=== PATIENT | female | born 1945 | race Caucasian/White ===

== ENCOUNTER 2019-07-09 14:23 | Inpatient (IN) | payer MEDICARE, OTHER, SELFPAY ==
[2019-07-09 14:43] VITALS: BP 207/75; PULSE 59; RESP 14; TEMP 36.6; O2SAT 96; BMI 38.6
--- NOTE | 2019-07-09 14:56 | XR_ITS ---
WS: [id number] PORTABLE CHEST HISTORY: ams COMPARISON: 01/16/2018 Lungs are clear and well expanded. No pleural effusion or pneumothorax. Cardiac size: Moderately enlarged cardiac silhouette. Mediastinum/Aorta: Ectatic partially calcified aorta. No osseous abnormality seen. XR/XR chest 1V portable [id number] IMPRESSION: 1. Moderate cardiomegaly. No pneumonia. 2. Partially calcified aorta.
--- NOTE | 2019-07-09 14:56 | CT_ITS ---
WS: [id number] CT HEAD NONCONTRAST HISTORY: ams TECHNIQUE: Contiguous axial imaging performed through the brain in 2.5 mm imaging. Bone and soft tiss ue windows. Sagittal and coronal reformats reviewed. All CT scans at [facility] use at ast one of these dose optimization techniques: automated exposure control; mA and/or kV adjustment pe r patient size (includes targeted exams where dose is matched to clinical indication); or iterative r econstruction. DLP: 859.93 mGy.cm COMPARISON: None available. No acute intracranial hemorrhage, midline shift or mass effect. Mild atrophy with more focal atrophy involving the frontal lobes bilaterally. Mild chronic microvascu lar ischemic disease. No inferior displacement of cerebellar tonsils. Ventricles: Normal size with no hydrocephalus. Paranasal sinuses: As visualized are clear. Mastoid air cells: Well pneumatized. Calvarium and scalp: Skull is intact with no soft tissue edema or swelling. Moderate atherosclerosis of the intracranial carotid arteries. CT/CT head wo con* [id number] IMPRESSION: 1. No acute intracranial hemorrhage or edema. 2. Cerebral atrophy, most prominent involving the frontal lobes bilaterally wi th mild chronic microvascular ischemic disease.
--- NOTE | 2019-07-09 14:57 | ECG_ITS ---
Measurements Intervals [place] Rate: 56 P: 48 RI: 242 QRS: -45 QRSD: 156 T: 55 QT: 488 QTc: 475 SINUS BRADYCARDIA WITH FIRST DEGREE AV BLOCK MARKED LEFT AXIS DEVIATION [QRS AXIS < -30] INTRAVENTRICULAR CONDUCTION DELAY [130+ ms QRS DURATION] No previous ECG available for comparison Electronically Signed On 07-09-2019 21:57:07 CDT by Thao Phillips M.D. [email or web address]
[2019-07-09 15:26] LABS: Basophils # 0.1 10^3/uL (0.0-0.1); Basophils % 0.9 %; Eosinophils # 0.1 10^3/uL (0.0-0.8); Eosinophils % 1.2 %; Hemoglobin 13.4 g/dL (11.5-15.3); Lymphocytes # 1.5 10^3/uL (0.8-4.8); Lymphocytes % 23.7 %; Mean Corpuscular HGB Conc 31.9 g/dL (30.0-36.0); Mean Corpuscular Hemoglobin 29.5 pg (28.0-34.0); Mean Corpuscular Volume 92.5 fL (81-99); Mean Platelet Volume 9.5 fL (7.4-10.4); Monocytes # 0.6 10^3/uL (0.2-0.9); Monocytes % 8.9 %; Neutrophils # 4.2 10^3/uL (1.8-7.7); Nucleated Red Blood Cells % 0 %; Platelet Count 349 10^3/cmm (130-400); Red Blood Count 4.54 10^6/uL (4.1-5.3); Red Cell Distribution Width 13.9 % (12.1-15.1); White Blood Count 6.5 10^3/uL (4.0-10.0)
--- NOTE | 2019-07-09 15:27 | ED_ITS ---
HPI - Neuro Symptoms/Deficit General: Chief Complaint: Neuro Symptoms/Deficit Stated Complaint: confused/possible stroke like symptoms Time Seen by Provider: 07/09/19 15:14 Source: patient Mode of arrival: ambulatory Limitations: no limitations History of Present Illness: HPI Narrative: 74-year-old female who states that 3 days ago she started having weakness along difficulty walking. She states that she has had weakness in her right side especially her right leg. States she had mild arm weakness as well. She states anytime she tries to walk she is very ataxic and has a very difficult time walking. She denies any headache and denies any worsening improving factors. She denies any fevers. Denies any pain anywhere. Onset (ago): day(s) Associated symptoms: Deny chest pain, nausea or vomiting Review of Systems Const: Denies: fever(s), chills, body aches or change in appetite Eyes: Denies: blurry vision or eye discomfort ENMT: Denies: throat pain or dental pain Card: Denies: chest pain Resp: Denies: dyspnea GI: Denies: abdominal pain, nausea, vomiting or diarrhea : Denies: dysuria Musc: Denies: neck pain or back pain Skin/Breast: Denies: rash Neuro: Reports: weakness in extremities and difficulty walking Psych: Denies: depression Bertin/Lymph: Denies: easy bruising All/Imm: Denies: urticaria PFSH ED PFSH: Social History Smoking and tobacco status: never smoked NIH stroke score NIHSS: Level Of Consciousness - 1a: 0 Level Of Consciousness Questions - 1b: Both Correct Level Of Consciousness Commands - 1c: Both Correct Best Gaze - 2: Normal Visual Mckeon - 3: No Visual Loss Facial Palsy - 4: Normal Motor Arm Right - 5: Drift Motor Arm Left - 5: No Drift Motor Leg Right - 6: No Drift Motor Leg Left - 6: No Drift Limb Ataxia - 7: Present In One Limb Sensory - 8: Normal Best Language - 9: No Aphasia Dysarthia - 10: Normal Extinction And Inattention - 11: 0 Score: Total Score: 2 Physical Exam Const: COMMON NORMALS: no acute distress, patient oriented x3 and healthy appearing HENMT: COMMON NORMALS: normocephalic and atraumatic HEAD & SCALP: normocephalic and atraumatic Eye: COMMON NORMALS: Equal, round and reactive pupils present and EOMs intact bilaterally PUPIL: Yes Equal, round and reactive pupils present Neck/C-Spine: COMMON NORMALS: full ROM and supple Chest: COMMONS NORMALS: normal inspection of the chest and normal palpation of entire chest wall Resp: COMMON NORMALS: normal respiratory effort, No retractions, No use of accessory muscles and clear to auscultation bilaterally AUSCULTATION: clear to auscultation bilaterally Cardio: COMMON NORMALS: regular rate, regular rhythm and No murmurs present (Cardio) RATE: regular rate RHYTHM: regular rhythm GI: COMMON NORMALS: Normal to inspection, nondistended, normoactive bowel sounds present, Soft to palpation, non-tender and no masses PALPATION: Yes Soft to palpation Extremity: COMMON NORMALS: normal to inspection and full ROM Neuro: COMMON NORMALS: patient oriented x3 and moves all extremities OTHER: slight right sided weakness Psych: COMMON NORMALS: mental status grossly normal, Normal thought process present and cooperative THOUGHT PROCESS: Normal thought process present Skin: COMMON NORMALS: no rashes or lesions noted and no wounds GENERAL SKIN EXAM: no rashes or lesions noted Course Vital Signs: Vital signs: Vital Signs Temperature 97.8 F 07/09/19 14:43 Pulse Rate 57 L 07/09/19 16:09 Respiratory Rate 20 H 07/09/19 16:09 Blood Pressure 170/69 07/09/19 16:09 Pulse Oximetry 94 07/09/19 16:09 MDM - Neuro Symptoms/Deficit MDM Narrative: Medical decision making narrative: 74-year-old female presents with right-sided weakness and a possible CVA. Her symptoms have been for 3 days so she is not a TPA candidate. Patient is also on Coumadin. Patient's symptoms are very mild I spoke to hospitalist and will admit for observation. Patient's lab work here is normal otherwise. Head CT showed no acute findings. Lab Data: Labs: Lab Results 07/09/19 07/09/19 07/09/19 Range/Units 15:15 15:15 15:15 WBC 6.5 (4.0-10.0) 10^3/ uL RBC 4.54 (4.1-5.3) 10^6/u L Hgb 13.4 (11.5-15.3) g/dL Hct 42.0 (37.0-47.0) % MCV 92.5 (81-99) fL MCH 29.5 (28.0-34.0) pg MCHC 31.9 (30.0-36.0) g/dL RDW 13.9 (12.1-15.1) % Plt Count 349 (130-400) 10^3/c mm MPV 9.5 (7.4-10.4) fL Neut % (Auto) 65.0 % Lymph % (Auto) 23.7 % [place] % (Auto) 8.9 % Eos % (Auto) 1.2 % Baso % (Auto) 0.9 % Neut # (Auto) 4.2 (1.8-7.7) 10^3/u L Lymph # (Auto) 1.5 (0.8-4.8) 10^3/u L [place] # (Auto) 0.6 (0.2-0.9) 10^3/u L Eos # (Auto) 0.1 (0.0-0.8) 10^3/u L Baso # (Auto) 0.1 (0.0-0.1) 10^3/u L Nucleated RBC % (a uto) 0 % Nucleated RBCs # 0.0 /100WBC PT 30.90 H (10.5-13.3) SECO NDS INR 2.84 H (0.8-1.2) Sodium 138 (136-145) mmol/L Potassium 4.3 (3.5-5.1) mmol/L Chloride 99 (98-107) mmol/L Carbon Dioxide 28 (22-29) mmol/L Anion Gap 15.3 (5-19) BUN 10 (8-23) mg/dL Creatinine 0.9 (0.5-0.9) mg/dL Glucose 252 H (65-115) mg/dL Calculated Osmolal ity 291 (285-295) mOsm/k g Calcium 9.4 (8.5-10.5) mg/dL Total Bilirubin 0.3 (0.15-1.2) mg/dL AST 15 (0-32) U/L ALT 11 (0-33) U/L Alkaline Phosphata se 75 (35-105) IU/L Total Protein 7.0 (6.6-8.7) g/dL Albumin 4.4 (3.5-5.2) g/dL Globulin 2.6 (1.3-4.6) g/dL Ethyl Alcohol < 10 (0-10) mg/dL Imaging Data^: CT Head: Attestation: I personally reviewed and interpreted this imaging study as follows: Radiologist's impression: [place] [address] CT Scan Report Signed Patient: Fallon Miller Unit #: [id number] : 1945 Age/Sex: 74 / F ADM Date: 07/09/19 Loc: ER Room/Bed: Attending Dr: Ordering Provider/Ordering MD: Janna Haji MD Date of Service: 07/09/19 Procedure(s): CT head wo con* [id number] Accession Number(s): [id number] Report Number: [id number] WS: [id number] CT HEAD NONCONTRAST HISTORY: ams TECHNIQUE: Contiguous axial imaging performed through the brain in 2.5 mm imaging. Bone and soft tissue windows. Sagittal and coronal reformats reviewed. All CT scans at [facility] use at least one of these dose optimization techniques: automated exposure control; mA and/or kV adjustment per patient size (includes targeted exams where dose is matched to clinical indication); or iterative reconstruction. DLP: 859.93 mGy.cm COMPARISON: None available. No acute intracranial hemorrhage, midline shift or mass effect. Mild atrophy with more focal atrophy involving the frontal lobes bilaterally. Mild chronic microvascular ischemic disease. No inferior displacement of cerebellar tonsils. Ventricles: Normal size with no hydrocephalus. Paranasal sinuses: As visualized are clear. Mastoid air cells: Well pneumatized. Calvarium and scalp: Skull is intact with no soft tissue edema or swelling. Moderate atherosclerosis of the intracranial carotid arteries. CT/CT head wo con* [id number] IMPRESSION: 1. No acute intracranial hemorrhage or edema. 2. Cerebral atrophy, most prominent involving the frontal lobes bilaterally with mild chronic microvascular ischemic disease. CXR: Attestation: I personally reviewed and interpreted this imaging study as follows: Radiologist's impression: [address] [address] XRay Report Signed Patient: Fallon Miller Unit #: [id number] : 1945 Age/Sex: 74 / F ADM Date: 07/09/19 Loc: ER Room/Bed: Attending Dr: Ordering Provider/Ordering MD: Janna Haji MD Date of Service: 07/09/19 Procedure(s): XR chest 1V portable [id number] Accession Number(s): [id number] Report Number: [id number] WS: [id number] PORTABLE CHEST HISTORY: ams COMPARISON: 01/16/2018 Lungs are clear and well expanded. No pleural effusion or pneumothorax. Cardiac size: Moderately enlarged cardiac silhouette. Mediastinum/Aorta: Ectatic partially calcified aorta. No osseous abnormality seen. XR/XR chest 1V portable [id number] IMPRESSION: 1. Moderate cardiomegaly. No pneumonia. 2. Partially calcified aorta. EKG Data^: EKG 1: Attestation: I personally reviewed and interpreted this EKG as follows: EKG interpretation date: 07/09/19 EKG interpretation time: 14:52 Interpretation: sinus bubba hr [address] or t wave abnormalities qrs 156 qtc 481 Discharge Plan Discharge Patient Disposition: Admitted As Inpatient Clinical Impression: Cerebrovascular accident Qualifiers: CVA mechanism: unspecified Qualified Code(s): I63.9 - Cerebral infarction, unspecified Condition: Stable Referrals: Kvng Lal DO [Primary Care Provider] - Coding Level of Care Code ED County Program Technician for Chg Fwd Exam Comprehensive
[2019-07-09 15:36] LABS: INR 2.84 (0.8-1.2)
[2019-07-09 15:46] LABS: Alanine Aminotransferase 11 U/L (0-33); Albumin Level 4.4 g/dL (3.5-5.2); Alkaline Phosphatase 75 IU/L (35-105); Anion Gap 15.3 (5-19); Aspartate Amino Transferase 15 U/L (0-32); Blood Urea Nitrogen 10 mg/dL (8-23); Calcium 9.4 mg/dL (8.5-10.5); Carbon Dioxide 28 mmol/L (22-29); Chloride 99 mmol/L (98-107); Globulin 2.6 g/dL (1.3-4.6); Glucose 252 mg/dL (65-115); Osmolality Calculated 291 mOsm/kg (285-295); Potassium 4.3 mmol/L (3.5-5.1); Sodium 138 mmol/L (136-145); Total Bilirubin 0.3 mg/dL (0.15-1.2)
[2019-07-09 15:55] LABS: Alcohol Level < 10 mg/dL (0-10)
[2019-07-09 16:09] VITALS: BP 170/69; PULSE 57; RESP 20; O2SAT 94
[2019-07-09] MEDS: sodium chloride 0.9% 1,000 ML 999 ML IV (16:09)
[2019-07-09 16:25] LABS: Add Urine Microscopic? NO
[2019-07-09 16:36] LABS: Urine Appearance Clear (CLEAR); Urine Color Yellow (Yellow); pH Urine 6 (5-7)
[2019-07-09 16:37] LABS: Bilirubin Urine Neg (NEGATIVE); Blood Urine Neg (Negative); Glucose Urine UA Norm (Normal); Ketones Urine Negative (Negative); Leukocyte Esterase Urine Negative (Negative); Nitrate Urine Negative (Negative); Protein Urine Neg (Negative); Urobilinogen Urine Norm (Negative)
[2019-07-09 16:54] VITALS: BP 168/74; PULSE 54; RESP 24; O2SAT 96
--- NOTE | 2019-07-09 17:51 | PM.HP ---
Providers/Chief Complaint Admitting Physician: Jf Montana MD Primary Care Provider: Kvng Lal DO Chief Complaint: confused/possible stroke like symptoms History of Present Illness Fallon Miller is a 74 year old female with a past medical history of insulin-dependent type 2 diabetes mellitus, atrial fibrillation on Coumadin and an antiarrhythmic, anxiety, hypertension, hyperlipidemia, hypothyroidism, who presents [facility] due to complaints of numbness. 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 Monday morning she started to notice that her right lip upper and lower, right tongue, right inner mouth felt numb, she thought not much of her symptoms. Throughout the day the numbness spread to the right side of her face, again she did not think much of her symptoms. Over the next 48 hours, numbness spread to the right arm, right chest, right leg, right gluteus, right groin, right sole of her feet, she has had trouble coordinating, she felt unsteady on her feet, she had a clumsy hand, things would frequently fall out of her hand, no facial droop, no visual changes, no inherent weakness of upper or lower extremities, no slurring of her speech. Patient states that she might of had a transient ischemic attack maybe 2 years ago, when she went went to use the bathroom, and she passed out, and needed help up out of the bathroom, EMS was called, but patient refused to come to the hospital. 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 Patient does report that on Monday she took an extra dose of her 5 mg of Coumadin as she was worried about her symptoms. Denies chest pain, palpitations, lightheadedness, dizziness, nausea, vomiting, bloody or black stools, hematemesis, hemoptysis. Currently patient states that she lives alone, but she does have sons are close by, her unfortunately fell off the roof roughly 2 months ago, he has been hospitalized for the last month, has undergone multiple surgeries, and there are plans on him returning back home. Review of Systems Const: Denies: fever(s), chills, fatigue or malaise Eyes: Denies: change in vision or blurry vision ENMT: Denies: nasal congestion Card: Denies: chest pain, palpitations, irregular heart rhythm, lightheadedness, syncope or orthopnea Resp: Denies: dyspnea, productive cough, non-productive cough or wheezing GI: Denies: abdominal pain, nausea, vomiting, hematemesis, diarrhea, constipation, hematochezia or melena : Denies: flank pain, dysuria or urinary frequency Musc: Denies: neck pain or back pain Skin/Breast: Denies: rash Neuro: Reports: numbness in extremities, sensory changes, lack of coordination, difficulty walking and dizziness; Denies: headache(s), vertigo, behavioral changes or Slurred speech present Psych: Denies: anxiety or depression Endo: Denies: polyuria or polydipsia Medications/Allergies Home Medications Medication Instructions Recorded Confirmed Last Taken Type amlodipine 5 mg tablet 5 mg PO DAILY #90 tab 06/10/19 07/09/19 07/09/19 Rx losartan 100 mg tablet 100 mg PO DAILY #90 tab 06/10/19 07/09/19 07/09/19 Rx nitroglycerin 0.4 mg sublingual 0.4 mg SUBLINGUAL Q5M PRN #90 tab 06/10/19 07/09/19 Unknown Rx tablet warfarin 5 mg tablet 5 mg PO DAILY #90 tab 06/10/19 07/09/19 07/08/19 Rx cholecalciferol (vitamin D3) 25 mcg PO DAILY 07/09/19 07/09/19 07/09/19 History [Vitamin D3] diazepam 5 mg PO TID PRN 07/09/19 07/09/19 Unknown History famotidine 40 mg PO DAILY 07/09/19 07/09/19 Unknown History flecainide 100 mg PO BID 07/09/19 07/09/19 07/09/19 History insulin asp prt-insulin aspart See Rx Instructions .ROUTE .COMPLEX 07/09/19 07/09/19 07/09/19 History [Novolog Mix 70-30 U-100 Insuln] levothyroxine 150 mcg PO DAILY 07/09/19 07/09/19 07/09/19 History metoprolol tartrate See Rx Instructions .ROUTE .COMPLEX 07/09/19 07/09/19 07/09/19 History nitroglycerin [Nitro-Time] 9 mg PO BID 07/09/19 07/09/19 07/09/19 History torsemide 20 mg PO DAILY 07/09/19 07/09/19 Unknown History tramadol See Rx Instructions .ROUTE .COMPLEX 07/09/19 07/09/19 Unknown History warfarin See Rx Instructions .ROUTE .COMPLEX 07/09/19 07/09/19 07/08/19 History Allergies Allergy/AdvReac Type Severity Reaction Status Date / Time Penicillins Allergy ALGY-Rash Verified 07/09/19 14:41 Sulfa (Sulfonamide Allergy ALGY-Rash Verified 07/09/19 14:41 Antibiotics) PFSH Acute PFSH: Medical History (Updated 07/09/19 @ 17:56 by Jf Montana MD) Atrial fibrillation History of deep vein thrombosis Hyperlipidemia Hypertension Hypothyroidism Insulin dependent type 2 diabetes mellitus Muscular dystrophy Surgical History (Updated 07/09/19 @ 17:57 by Jf Montana MD) History of appendectomy Family History (Updated 07/09/19 @ 17:57 by Jf Montana MD) Father Stroke Social History Smoking and tobacco status: never smoked Vitals/I&O/Wt Last Vital Signs Temp 97.8 F 07/09/19 14:43 Pulse 54 L 07/09/19 16:54 Resp 24 H 07/09/19 16:54 BP 168/74 07/09/19 16:54 Pulse Ox 96 07/09/19 16:54 Weight last 48 hrs Weight 102.058 kg Physical Exam Const: COMMON NORMALS: no acute distress and patient oriented x3 GENERAL APPEARANCE: cooperative and comfortable HENMT: COMMON NORMALS: normocephalic HEAD & SCALP: normocephalic Eye: COMMON NORMALS: Equal, round and reactive pupils present, EOMs intact bilaterally and no papilledema GENERAL EYE: appearance normal, both eyes and all related structures PUPIL: Yes Equal, round and reactive pupils present DIRECT OPHTHALMOSCOPY: Yes no papilledema Neck/C-Spine: COMMON NORMALS: full ROM, no lymphadenopathy, no JVD and Thyroid normal THYROID: Thyroid normal Lymph: LYMPHATIC: no lymphadenopathy noted Resp: COMMON NORMALS: normal respiratory effort, No retractions, No use of accessory muscles and clear to auscultation bilaterally AUSCULTATION: clear to auscultation bilaterally Cardio: COMMON NORMALS: no JVD, regular rate, regular rhythm, S1 normal heart sound present, S2 normal heart sound present, No gallops present (Cardio), No clicks present (Cardio) and No murmurs present (Cardio) RATE: regular rate RHYTHM: regular rhythm HEART SOUNDS: S1 normal heart sound present and S2 normal heart sound present GI: COMMON NORMALS: Normal to inspection, nondistended, normoactive bowel sounds present, Soft to palpation, non-tender and No hepatosplenomegaly present PALPATION: Yes Soft to palpation and Yes No hepatosplenomegaly present Extremity: COMMON NORMALS: normal to inspection, full ROM and no pedal edema Neuro: COMMON NORMALS: patient oriented x3, CN's II-XII intact bilaterally, moves all extremities and no focal motor deficits SENSORIUM/ORIENTATION: Yes alert, Yes oriented to person, Yes oriented to place and Yes oriented to time SPEECH: speech normal GAIT: Yes Other gait observations present (Unsteady on her feet) SENSORY EXAM: Yes extremities (Right upper extremity numb, right lower extremity numb, right sole of her feet numb) and Trunk sensory exam abnormal (Right trunk is numb, right glued numb, right inner groin numb, right sole of her feet numb, right face numb right tongue numb, right inner part of her mouth numb) MOTOR EXAM: 5/5 motor strength present throughout COORDINATION: vvttos-[id number] test normal (Qiwezj-fr-lyac abnormal) and kbnh-ma-rfee test normal (Abnormal on the right) PUPIL EXAM: Normal pupillary reactivity/response: bilateral Psych: COMMON NORMALS: mental status grossly normal, Normal thought process present and cooperative THOUGHT PROCESS: Normal thought process present Data : 07/09/19 15:15 07/09/19 15:15 A&P Assessment and plan (1) Thalamic stroke: -Given patient's sensory deficits on the right, difficulty coordinating, sounds a lot like a thalamic stroke -Differential includes embolic versus hypertensive Plan: -Admit to general medical floors -Bedside swallow evaluation -Neurochecks -A1c, TSH, lipid panel, mag, phos -PT OT -Telemetry monitoring -Monitor blood pressures -Pharmacy to dose Coumadin, INR 2.8 -Aspirin 81 mg, atorvastatin 80 mg -We will perform a cardiac echocardiogram -We will order MRI of the brain, MRA MRV to evaluate posterior circulation -I spoke to Dr. Urrutia, who agrees with above plan Status: Acute (2) Atrial fibrillation: -Continue flecainide -INR 2.89 -Continue Coumadin pharmacy to dose, 5 mg daily Status: Acute (3) History of deep vein thrombosis: History of DVTs bilateral extremities in the past Status: Acute (4) Muscular dystrophy: Patient has been told that she has a mild form of muscular dystrophy Status: Acute (5) Insulin dependent type 2 diabetes mellitus: -Continue 70/30 40 units in the morning, 20 units at bedtime -Check hemoglobin A1c Status: Acute (6) Hypothyroidism: Continue levothyroxine Status: Acute (7) Hyperlipidemia: Status: Acute (8) Hypertension: Status: Acute Attestations Medical Necessity Statement*: Patient requires hospitalization, outpatient with observation, for thalamic stroke Coding Level of Care Code Acute Chemical Research Worker for [facility] Diagnoses Thalamic stroke I63.9 Atrial fibrillation I48.91 History of deep vein thrombosis Z86.718 Muscular dystrophy G71.00 Insulin dependent type 2 diabetes mellitus E11.9; Z79.4 Hypothyroidism E03.9 Hyperlipidemia E78.5 Hypertension I10
[2019-07-09 18:11] VITALS: BP 116/75; PULSE 57; RESP 18; TEMP 36.9; O2SAT 94
[2019-07-09] MEDS: sodium chloride 0.9% 1,000 ML 75 ML IV (18:28)
[2019-07-09] MEDS: aspirin 81 mg EC Tablet PO (18:28)
[2019-07-09 19:11] LABS: Estmated Average Glucose 192; Hemoglobin A1C 8.3 % (4.0-6.0)
[2019-07-09 19:22] LABS: Chol HDL Ratio 6.63 mg/dL (0.0-4.40); Cholesterol 252 mg/dL (0-200); HDL Cholesterol 38 mg/dL (60-100); LDL Cholesterol Calculated 178 mg/dL (50-129); LDL HDL Ratio 4.68 RATIO (0.00-3.22); Thyroid Stimulating Hormone 1.39 uIU/mL (0.27-4.20); Triglycerides 181 mg/dL (0-150)
[2019-07-09 20:00] VITALS: BP 170/71; PULSE 54; RESP 20; TEMP 36.7; O2SAT 99
[2019-07-09 20:21] VITALS: PULSE 81; RESP 18; O2SAT 94
[2019-07-09 20:40] LABS: Glucose Point of Care 164 mg/dL (70-110)
[2019-07-09] MEDS: metoprolol tartrate 25 mg Tablet PO (21:34)
[2019-07-09] MEDS: atorvastatin 40 mg Tablet 80 MG PO (21:34)
[2019-07-09] MEDS: insulin aspart 70/30 100 units/1 mL 40 UNIT SUBCUT (21:35)
[2019-07-10] VITALS (8 sets, daily range): BP systolic 136–170; BP diastolic 59–79; PULSE 55–98; RESP 16–20; TEMP 36.4–36.6; O2SAT 93–97
[2019-07-10 05:31] LABS: Basophils % 0.8 %; Eosinophils # 0.2 10^3/uL (0.0-0.8); Eosinophils % 3.1 %; Hemoglobin 12.1 g/dL (11.5-15.3); Lymphocytes # 1.7 10^3/uL (0.8-4.8); Lymphocytes % 32.7 %; Mean Corpuscular Hemoglobin 28.8 pg (28.0-34.0); Mean Corpuscular Volume 92.9 fL (81-99); Mean Platelet Volume 9.4 fL (7.4-10.4); Monocytes # 0.7 10^3/uL (0.2-0.9); Monocytes % 13.8 %; Neutrophils # 2.5 10^3/uL (1.8-7.7); Neutrophils % 49.2 %; Nucleated Red Blood Cells % 0 %; Platelet Count 303 10^3/cmm (130-400); Red Cell Distribution Width 13.8 % (12.1-15.1); White Blood Count 5.1 10^3/uL (4.0-10.0)
[2019-07-10 05:40] LABS: INR 3.27 (0.8-1.2)
[2019-07-10 05:45] LABS: Alanine Aminotransferase 8 U/L (0-33); Albumin Level 3.7 g/dL (3.5-5.2); Alkaline Phosphatase 64 IU/L (35-105); Anion Gap 12.9 (5-19); Aspartate Amino Transferase 13 U/L (0-32); Blood Urea Nitrogen 11 mg/dL (8-23); Calcium 8.6 mg/dL (8.5-10.5); Carbon Dioxide 28 mmol/L (22-29); Chloride 105 mmol/L (98-107); Globulin 2.5 g/dL (1.3-4.6); Glucose 138 mg/dL (65-115); Magnesium 1.8 mg/dL (1.7-2.3); Osmolality Calculated 292 mOsm/kg (285-295); Phosphorus 3.1 mg/dL (2.5-4.5); Potassium 3.9 mmol/L (3.5-5.1); Sodium 142 mmol/L (136-145); Total Bilirubin 0.3 mg/dL (0.15-1.2); Total Protein 6.2 g/dL (6.6-8.7)
[2019-07-10 06:51] LABS: Glucose Point of Care 111 mg/dL (70-110)
--- NOTE | 2019-07-10 07:00 | USCV_ITS ---
Fallon Miller Age: 74 Gender: F : 1945 Exam Date: 07/10/2019 06:12 Ordering Phys: Jf Montana MD Technologist: Yamil Frost [place] [facility] [place]: stroke BP: 157 / 70 HR: 56 Rhythm: Sinus Technical Quality: Adequate MEASUREMENTS (Male / Female) Normal Values 2D ECHO LV Diastolic Diameter PLAX 4.9 cm 4.2 - 5.9 / 3.9 - 5.3 cm LV Systolic Diameter PLAX 3.4 cm IVS Diastolic Thickness 1.1 cm 0.6 - 1.0 / 0.6 - 0.9 cm IVS Systolic Thickness 1.6 cm LVPW Diastolic Thickness 1.1 cm 0.6 - 1.0 / 0.6 - 0.9 cm LVPW Systolic Thickness 1.4 cm LVOT Diameter 2.0 cm LV Ejection Fraction 2D Teich 57.9 % LV Ejection Fraction MOD 2C 57.6 % LV Ejection Fraction 2C AL 57.0 % LA Diameter 4.3 cm LA Width 5.0 cm LA Height 5.9 cm RA Width 5.0 cm RA Height 5.0 cm Aorta at Sinotubular Diameter 2.8 cm M-MODE LV Diastolic Diameter MM 5.3 cm 4.2 - 5.9 / 3.9 - 5.3 cm LV Systolic Diameter MM 3.0 cm LV Ejection Fraction MM Teich 72.7 % IVS Diastolic Thickness MM 2.0 cm 0.6 - 1.0 / 0.6 - 0.9 cm IVS Systolic Thickness MM 1.7 cm LVPW Diastolic Thickness MM 5.6 cm 0.6 - 1.0 / 0.6 - 0.9 cm LVPW Systolic Thickness MM 1.8 cm RV Diastolic Diameter MM 1.7 cm Aortic Annulus Diameter 3.7 cm LA Ao Ratio MM 1.1 MV E Point Septal Separation 0.7 cm DOPPLER AV Peak Velocity 127.0 cm/s LVOT Peak Velocity 91.0 cm/s AV Area Cont Eq vti 2.2 cm squared AV Area Cont Eq pk 2.4 cm squared MV Area PHT 5.0 cm squared Mitral E to A Ratio 1.6 MV E' Velocity 8.0 cm/s Mitral E to MV E' Ratio 12.9 Mitral E to LV E' Lateral Ratio 13.4 Mitral E to LV E' Septal Ratio 12.4 TR Peak Velocity 293.0 cm/s TR Peak Gradient 34.4 mmHg TV Peak E Velocity 93.0 cm/s Right Atrial Pressure 3.0 mmHg Pulmonary Artery Systolic Pressu 37.3 mmHg FINDINGS Left Ventricle Normal left ventricular size, systolic function and wall thickness, with no regional wall motion abnormalities. Grade I/IV diastolic dysfunction (abnormal relaxation filling pattern), normal to mildly elevated filling pressures. Left ventricular ejection fraction is estimated at 60 %. Right Ventricle Normal right ventricular size and systolic function. Mild pulmonary hypertension, RVSP 37.3 mmHg. Right Atrium Mildly increased right atrial size. Left Atrium Mildly increased left atrial size. Mitral Valve Structurally normal mitral valve without significant stenosis or prolapse. There is no mitral regurgitation. Aortic Valve Mild aortic valve calcification. Aortic valve sclerosis without stenosis or regurgitation. Tricuspid Valve Structurally normal tricuspid valve. Trace to mild tricuspid valve regurgitation. Pulmonic Valve Pulmonic valve not well visualized. Pericardium Normal pericardium without effusion. Aorta Normal ascending aorta dimension. CONCLUSIONS Normal left ventricular size, systolic function and wall thickness, with no regional wall motion abnormalities. Grade I/IV diastolic dysfunction (abnormal relaxation filling pattern), normal to mildly elevated filling pressures. Left ventricular ejection fraction is estimated at 60 %. Normal right ventricular size and systolic function. Mild pulmonary hypertension, RVSP 37.3 mmHg. Mildly increased right atrial size. Mildly increased left atrial size. No change from the previous echo dated 12/02/2014 Dr. Gabriel Sommers MD (Electronically Signed) Final Date: 10 Jul 2019 09:04 S
[2019-07-10] MEDS: acetaminophen 325 mg Tablet 650 MG PO (08:48)
[2019-07-10] MEDS: losartan 50 mg Tablet 100 MG PO (08:49)
[2019-07-10] MEDS: TORSEmide 20 mg Tablet PO (08:49)
[2019-07-10] MEDS: levothyroxine 150 mcg Tablet PO (08:50)
[2019-07-10] MEDS: metoprolol tartrate 50 mg Tablet PO (08:50)
[2019-07-10] MEDS: amlodipine 5 mg Tablet PO ×2 (08:50→17:10)
[2019-07-10] MEDS: famotidine 20 mg Tablet 40 MG PO (08:52)
--- NOTE | 2019-07-10 10:26 | PC.CHAP ---
Pastoral Care Encounter/Spiritual Assessment Type of Contact [] Declined production worker visit [] Patient/Family/Request visit [] Outpatient visit [] Follow-up visit [] Physician referral [] Code/Alert [x] Routine visit [] Staff referral [] Actively dying [] Patient sleeping [] Family support [] [] Out of room [] Palliative care [] [] Receiving care in room [] Pre-surgical visit [] Trauma [] Long length of stay [] ICU visit [] Other: Relational/Emotional Strength [] Patient feels connected with others/family/visitors/staff [] Distress [] Loneliness/isolation [] Abandonment Spirituality of Patient [x] Person of Marleny [x] Attends Restorationist of their Marleny [x] Believes in Prayer [] Reads Bible or Shinto materials [] There are Spiritual issues to be addressed Human Resource Statistician Interventions [x] Prayer [] Active listening [] Non-anxious presence [] Spiritual/emotional support [] Crisis/trauma care [] Spiritual counseling [] Bereavement support [] Provided bereavement packet [] Provided Bible/devotional materials [] Provided toy/stuffed animal, coloring book to patient or family member [] Provided Communion [] Anointing/Dexter [] Salvation [x] Completed spiritual assessment [] Other: Impact on Illness or Injury [] Angry [] Fearful [] Anxious [] Often cries [] Exhaustion [] Unable to work [] Unable to attend anabaptism [] Unable to walk/stand [] Unable to read [] Unable to drive [] Unable to eat/drink [] Unable to sleep [] Unable to be with family [] Patient intubated [] Other: Summary Patient in great frame of mind. Understands she has tests today, but looking forward to getting home. Time spent with patient 15min
[2019-07-10] MEDS: sodium chloride 0.9% 1,000 ML 75 ML IV (10:55)
[2019-07-10] MEDS: aspirin 81 mg EC Tablet PO (10:58)
[2019-07-10 11:50] LABS: Glucose Point of Care 242 mg/dL (70-110)
[2019-07-10] MEDS: flecainide 100 mg Tablet PO ×2 (12:02→17:10)
--- NOTE | 2019-07-10 12:56 | PM.PN ---
Subjective Subjective: Interval history: This morning patient was able to ambulate with physical therapy, hopefully she will go home with home health care, is awaiting her MRI this morning, states that the numbness on the right side has improved to some degree, but persist, no new focal neurologic deficits Vitals/I&O/Wt Last Vital Signs Temp 97.9 F 07/10/19 11:29 Pulse 98 07/10/19 11:29 Resp 20 H 07/10/19 11:29 BP 170/65 07/10/19 11:29 Pulse Ox 94 07/10/19 11:29 07/09/19 07/10/19 07/10/19 22:59 06:59 14:59 Intake Total 1480 / 1480 Balance 1480 / 1480 Weight last 48 hrs Weight 102.058 kg Physical Exam Const: COMMON NORMALS: no acute distress, patient oriented x3 and alert GENERAL APPEARANCE: cooperative and comfortable ORIENTATION/CONSCIOUSNESS: Yes oriented to person, Yes oriented to place and Yes oriented to time HENMT: COMMON NORMALS: normocephalic HEAD & SCALP: normocephalic Neck/C-Spine: COMMON NORMALS: full ROM, no lymphadenopathy, no JVD and Thyroid normal THYROID: Thyroid normal Lymph: LYMPHATIC: no lymphadenopathy noted Resp: COMMON NORMALS: normal respiratory effort, No retractions, No use of accessory muscles and clear to auscultation bilaterally AUSCULTATION: clear to auscultation bilaterally Cardio: COMMON NORMALS: no JVD, regular rate, regular rhythm, S1 normal heart sound present, S2 normal heart sound present, No gallops present (Cardio), No clicks present (Cardio) and No murmurs present (Cardio) RATE: regular rate RHYTHM: regular rhythm HEART SOUNDS: S1 normal heart sound present and S2 normal heart sound present GI: COMMON NORMALS: Normal to inspection, nondistended, normoactive bowel sounds present, Soft to palpation, non-tender and No hepatosplenomegaly present PALPATION: Yes Soft to palpation and Yes No hepatosplenomegaly present Extremity: COMMON NORMALS: normal to inspection, full ROM and no pedal edema Neuro: COMMON NORMALS: patient oriented x3, CN's II-XII intact bilaterally, moves all extremities and no focal motor deficits SENSORIUM/ORIENTATION: Yes alert, Yes oriented to person, Yes oriented to place and Yes oriented to time COORDINATION/BALANCE: wnmsnm-dv-ejrt test normal (Dmkvtn-zf-ntcg abnormal) and vlep-pd-irsq test normal (Abnormal on the right) SPEECH: speech normal GAIT: Yes Other gait observations present (Unsteady on her feet) SENSORY EXAM: Yes extremities (Right upper extremity numb, right lower extremity numb, right sole of her feet numb) and Trunk sensory exam abnormal (Right trunk is numb, right glued numb, right inner groin numb, right sole of her feet numb, right face numb right tongue numb, right inner part of her mouth numb) MOTOR EXAM: 5/5 motor strength present throughout COORDINATION: ofuxnc-mj-cgru test normal (Qfjbvv-gd-gtjq abnormal) and uqry-vn-nyzh test normal (Abnormal on the right) PUPIL EXAM: Normal pupillary reactivity/response: bilateral Data : 07/10/19 05:16 07/10/19 05:16 A&P Assessment and plan (1) Thalamic stroke: -Given patient's sensory deficits on the right, difficulty coordinating, sounds a lot like a thalamic stroke -Differential includes embolic versus hypertensive Plan: -Admit to general medical floors -Neurochecks -A1c 8.3, TSH 1.39, lipid panel abnormal, -PT OT -Telemetry monitoring -Monitor blood pressures -Pharmacy to dose Coumadin, INR 3.27 -Aspirin 81 mg, atorvastatin 80 mg -Echocardiogram shows ejection fraction of 60%, grade 1 out of 4 diastolic dysfunction, mild palmar hypertension -We will order MRI of the brain, MRA MRV to evaluate posterior circulation -I spoke to Dr. Urrutia, who agrees with above plan Status: Acute (2) Atrial fibrillation: -Continue flecainide -INR 2.89 -Continue Coumadin pharmacy to dose, 5 mg daily Status: Acute (3) History of deep vein thrombosis: History of DVTs bilateral extremities in the past Status: Acute (4) Muscular dystrophy: Patient has been told that she has a mild form of muscular dystrophy Status: Acute (5) Insulin dependent type 2 diabetes mellitus: -Continue 70/30 40 units in the morning, 20 units at bedtime Status: Acute (6) Hypothyroidism: Continue levothyroxine Status: Acute (7) Hyperlipidemia: Status: Acute (8) Hypertension: Status: Acute Attestations Medical Necessity Statement*: Requires continued hospitalization for thalamic stroke, hopefully will be discharged later on this evening Coding Level of Care Code Acute Visual Merchandiser for Chg Fwd Diagnoses Thalamic stroke I63.9 Atrial fibrillation I48.91 History of deep vein thrombosis Z86.718 Muscular dystrophy G71.00 Insulin dependent type 2 diabetes mellitus E11.9; Z79.4 Hypothyroidism E03.9 Hyperlipidemia E78.5 Hypertension I10
[2019-07-10] MEDS: insulin aspart 70/30 100 units/1 mL 20 UNIT SUBCUT (13:58)
[2019-07-10] MEDS: chlorthalidone 25 mg Tablet PO (14:05)
[2019-07-10] MEDS: diazePAM 5 mg Tablet PO (14:13)
--- NOTE | 2019-07-10 14:24 | PC.NURSE ---
patient taken to MRI via wheelchair.
--- NOTE | 2019-07-10 14:26 | PC.NURSE ---
PATIENT IS OFF UNIT, AT MRI
[2019-07-10] MEDS: ondansetron 2 mg/ML SDV 2 mL 4 MG IVP (16:25)
[2019-07-10 16:29] LABS: Glucose Point of Care 190 mg/dL (70-110)
--- NOTE | 2019-07-10 16:40 | PC.OT ---
Attempted patient's OT eval at 3:15, however patient at [facility] undergoing MRI. Attempted to see again at 4:30, however patient declined at this time citing nausea and fatigue. Patient agreeable to attempting OT evaluation tomorrow morning.
[2019-07-10] MEDS: warfarin 2 mg Tablet PO (16:59)
[2019-07-10] MEDS: metoprolol tartrate 25 mg Tablet PO (17:10)
--- NOTE | 2019-07-10 18:11 | MR_ITS ---
WS: [id number] MRA ANGIOGRAPHY [place] OF [place] HISTORY: posterior circulation stroke COMPARISON: None available. TECHNIQUE: 3-D MR angiography is performed of the ka[place] of Dent. All images are reviewed including source images. Distal vertebral and basilar arteries are intact with no significant stenosis or plaque. RIGHT verteb ral artery is slightly smaller caliber than the LEFT. Posterior cerebral arteries are normal course a nd caliber. Posterior communicating arteries are both patent. Intracranial portion of the internal carotid arteries are normal course and caliber. No significant a therosclerosis, stenosis or aneurysm identified. Middle and anterior cerebral arteries are both paten t with no significant disease. Anterior communicating artery is also normal. MR/MR angio head wo con [id number] IMPRESSION: Normal MRA ka[place] of Dent.
--- NOTE | 2019-07-10 18:11 | MR_ITS ---
WS: [id number] MRA CAROTID ARTERIES HISTORY: posterior circulation stroke COMPARISON: None available. TECHNIQUE: MRA is performed with intravenous gadolinium. MIP and source images are reviewed. Right: Normal RIGHT common, internal and external carotid arteries. No stenosis or plaque. Left: Normal LEFT common, internal and external carotid arteries. No stenosis or plaque. Subclavian Arteries: Poorly visualized due to breathing. Overlapping venous structures also. Vertebral Arteries: Approximately vertebral arteries are difficult to visualize but beyond their orig ins they are intact. MR/MR angio neck w con* [id number] IMPRESSION: No significant carotid artery stenosis.
--- NOTE | 2019-07-10 18:11 | MR_ITS ---
WS: [id number] MRI BRAIN WITHOUT CONTRAST HISTORY: posterior circulation, thalamic stroke COMPARISON: CT head 07/09/2019 TECHNIQUE: Diffusion imaging, multiplanar T1, T2 and FLAIR imaging obtained. Acute infarct involving the LEFT thalamus. This is a small lacunar infarct. No additional diffusion-w eighted abnormalities. There is mild cerebral atrophy bilaterally and mild chronic microvascular isch emic disease otherwise. No intracerebral hemorrhage. Ventricles and extra-axial spaces are normal. No inferior displacement of cerebellar tonsils. The sella turcica and pituitary gland are unremarkabl e. Posterior fossa is also unremarkable. Dural venous sinuses and [place] demonstrate no abnormality on this unenhanced studies. Paranasal sinuses: Clear. Mastoid air cells: Normal. Calvarium and scalp: Intact. MR/MR head wo con* [id number] IMPRESSION: 1. Acute, nonhemorrhagic LEFT thalamic lacunar infarct. . 2. Mild chronic atrophy and very mild chronic ischemic disease.
[2019-07-10 20:52] LABS: Glucose Point of Care 255 mg/dL (70-110)
[2019-07-10] MEDS: atorvastatin 40 mg Tablet 80 MG PO (21:51)
[2019-07-10] MEDS: insulin aspart 70/30 100 units/1 mL 40 UNIT SUBCUT (21:52)
[2019-07-10] MEDS: TRAMadol 50 mg Tablet PO (21:58)
[2019-07-11] VITALS (8 sets, daily range): BP systolic 103–175; BP diastolic 67–75; PULSE 54–60; RESP 16–24; TEMP 36.3–36.8; O2SAT 93–96
[2019-07-11] MEDS: sodium chloride 0.9% 1,000 ML 75 ML IV (03:12)
[2019-07-11 06:07] LABS: Basophils # 0.1 10^3/uL (0.0-0.1); Basophils % 0.7 %; Eosinophils # 0.2 10^3/uL (0.0-0.8); Eosinophils % 2.9 %; Hemoglobin 12.8 g/dL (11.5-15.3); Lymphocytes # 1.7 10^3/uL (0.8-4.8); Lymphocytes % 24.7 %; Mean Corpuscular Hemoglobin 29.4 pg (28.0-34.0); Mean Corpuscular Volume 91.7 fL (81-99); Mean Platelet Volume 9.6 fL (7.4-10.4); Monocytes # 0.7 10^3/uL (0.2-0.9); Monocytes % 10.7 %; Neutrophils # 4.2 10^3/uL (1.8-7.7); Nucleated Red Blood Cells % 0 %; Platelet Count 322 10^3/cmm (130-400); Red Blood Count 4.36 10^6/uL (4.1-5.3); Red Cell Distribution Width 13.4 % (12.1-15.1); White Blood Count 6.9 10^3/uL (4.0-10.0)
[2019-07-11 06:27] LABS: Alanine Aminotransferase 9 U/L (0-33); Alkaline Phosphatase 69 IU/L (35-105); Anion Gap 13.4 (5-19); Aspartate Amino Transferase 13 U/L (0-32); Blood Urea Nitrogen 15 mg/dL (8-23); Calcium 9.2 mg/dL (8.5-10.5); Carbon Dioxide 30 mmol/L (22-29); Chloride 101 mmol/L (98-107); Globulin 2.9 g/dL (1.3-4.6); Glucose 124 mg/dL (65-115); Magnesium 1.8 mg/dL (1.7-2.3); Osmolality Calculated 290 mOsm/kg (285-295); Phosphorus 3.8 mg/dL (2.5-4.5); Potassium 3.4 mmol/L (3.5-5.1); Sodium 141 mmol/L (136-145); Total Bilirubin 0.4 mg/dL (0.15-1.2); Total Protein 6.9 g/dL (6.6-8.7)
[2019-07-11 06:29] LABS: Glucose Point of Care 137 mg/dL (70-110)
[2019-07-11] MEDS: aspirin 81 mg EC Tablet PO (08:12)
[2019-07-11] MEDS: famotidine 20 mg Tablet 40 MG PO (08:12)
[2019-07-11] MEDS: flecainide 100 mg Tablet PO (08:12)
[2019-07-11] MEDS: amlodipine 5 mg Tablet PO (08:12)
[2019-07-11] MEDS: chlorthalidone 25 mg Tablet PO (08:12)
[2019-07-11] MEDS: losartan 50 mg Tablet 100 MG PO (08:12)
[2019-07-11] MEDS: levothyroxine 150 mcg Tablet PO (08:12)
[2019-07-11] MEDS: metoprolol tartrate 25 mg Tablet PO (08:12)
[2019-07-11] MEDS: TORSEmide 20 mg Tablet PO (08:12)
[2019-07-11] MEDS: insulin aspart 70/30 100 units/1 mL 20 UNIT SUBCUT (08:13)
[2019-07-11 09:22] LABS: INR 2.49 (0.8-1.2)
[2019-07-11] MEDS: cloNIDine 0.1 mg Tablet PO (10:13)
--- NOTE | 2019-07-11 11:22 | PM.DCS ---
Discharge Providers Date of Admission: 07/10/19 20:15 Date of Discharge: July 11, 2019 Attending Provider at Admission: Jf Montana MD Attending Provider at Discharge: Jf Montana MD Primary Care Provider: Kvng Lal DO Diagnoses at Discharge Discharge Diagnosis (1) Thalamic stroke: Status: Acute (2) Atrial fibrillation: Status: Acute (3) History of deep vein thrombosis: Status: Acute (4) Muscular dystrophy: Status: Acute (5) Insulin dependent type 2 diabetes mellitus: Status: Acute (6) Hypothyroidism: Status: Acute (7) Hyperlipidemia: Status: Acute (8) Hypertension: Status: Acute Reason for Visit Reason for Visit: Reason For Visit: confused/possible stroke like symptoms Hospital Course Discharge Summary: Fallon Miller is a 74 year old female with a past medical history of insulin-dependent type 2 diabetes mellitus, atrial fibrillation on Coumadin and an antiarrhythmic, anxiety, hypertension, hyperlipidemia, hypothyroidism, who presents [facility] due to complaints of numbness. Patient was admitted for right radhika-anesthesia, concerning for thalamic stroke, out of TPA window, initial CT of the head was negative for intracranial bleed, received IV fluids, continued her home anticoagulation with Coumadin, started aspirin, statin, I monitored her blood pressures, neurochecks. In consultation with Dr. Urrutia, patient had MRI of her brain which showed acute nonhemorrhagic left thalamic lacunar infarct. Thus likely patient had an ischemic stroke, left thalamic lacunar stroke, on discharge her right-sided numbness was slowly improving, such as her soles of her feet, her right buttocks, but persisted in other places. Patient was discharged on aspirin 81 mg, statin 80 mg daily, continue home Coumadin, was advised to monitor for bleeding, repeat CBC in 1 week, follow-up with primary care provider 1 week, follow-up with Dr. Urrutia in 1 month, discharged home health care. For her blood pressure, amlodipine was increased to 10 mg daily, added chlorthalidone 25 mg p.o. daily, added clonidine 0.1 mg twice daily. Patient was advised that if she were to have recurrent strokelike symptoms come to the emergency room or call 911. For her depression anxiety, I discharge patient on Celexa 10 mg p.o. daily, patient is to follow-up with primary care provider in 1 week. Physical Exam Const: COMMON NORMALS: no acute distress, patient oriented x3 and alert GENERAL APPEARANCE: cooperative and comfortable ORIENTATION/CONSCIOUSNESS: Yes oriented to person, Yes oriented to place and Yes oriented to time HENMT: COMMON NORMALS: normocephalic HEAD & SCALP: normocephalic Eye: COMMON NORMALS: Equal, round and reactive pupils present, EOMs intact bilaterally and no papilledema GENERAL EYE: appearance normal, both eyes and all related structures PUPIL: Yes Equal, round and reactive pupils present DIRECT OPHTHALMOSCOPY: Yes no papilledema Neck/C-Spine: COMMON NORMALS: full ROM, no lymphadenopathy, no JVD and Thyroid normal THYROID: Thyroid normal Lymph: LYMPHATIC: no lymphadenopathy noted Resp: COMMON NORMALS: normal respiratory effort, No retractions, No use of accessory muscles and clear to auscultation bilaterally AUSCULTATION: clear to auscultation bilaterally Cardio: COMMON NORMALS: no JVD, regular rate, regular rhythm, S1 normal heart sound present, S2 normal heart sound present, No gallops present (Cardio), No clicks present (Cardio) and No murmurs present (Cardio) RATE: regular rate RHYTHM: regular rhythm HEART SOUNDS: S1 normal heart sound present and S2 normal heart sound present GI: COMMON NORMALS: Normal to inspection, nondistended, normoactive bowel sounds present, Soft to palpation, non-tender and No hepatosplenomegaly present PALPATION: Yes Soft to palpation and Yes No hepatosplenomegaly present Extremity: COMMON NORMALS: normal to inspection, full ROM and no pedal edema Neuro: COMMON NORMALS: patient oriented x3, CN's II-XII intact bilaterally, moves all extremities and no focal motor deficits SENSORIUM/ORIENTATION: Yes alert, Yes oriented to person, Yes oriented to place and Yes oriented to time COORDINATION/BALANCE: kmvccd-le-cyhl test normal (Styioj-vm-oxaa abnormal) and jeke-ih-furh test normal (Abnormal on the right) SPEECH: speech normal GAIT: Yes Other gait observations present (Unsteady on her feet) SENSORY EXAM: Yes extremities (Right upper extremity numb, right lower extremity numb, right sole of her feet numb) and Trunk sensory exam abnormal (Right trunk is numb, right glued numb, right inner groin numb, right sole of her feet numb, right face numb right tongue numb, right inner part of her mouth numb) MOTOR EXAM: 5/5 motor strength present throughout COORDINATION: ulrsaa-rw-nxyx test normal (Ukyoab-ax-poms abnormal) and aclo-rg-guyq test normal (Abnormal on the right) PUPIL EXAM: Normal pupillary reactivity/response: bilateral Psych: COMMON NORMALS: mental status grossly normal, Normal thought process present and cooperative THOUGHT PROCESS: Normal thought process present Discharge Data Data Completed and Pending: Completed Studies During Hospitalization Category Date Time Status CT head wo con* [id number] Urgent Cat Scan 07/09/19 14:56 Completed XR chest 1V baron ble [id number] Urgent Exams 07/09/19 14:56 Completed MR angio head wo con [id number] Routine MRI 07/10/19 18:11 Completed MR angio neck w c on* [id number] Routine MRI 07/10/19 18:11 Completed MR head wo con* [id number] Routine MRI 07/10/19 18:11 Completed CV echo complete* [id number] Routine Ultrasound 07/10/19 07:00 Completed Pending at discharge Category Date Time Status Complete Blood Co unt w/Auto AM LABS Lab 07/12/19 04:00 Ordered Comprehensive Met abolic Panel AM LA BS Lab 07/12/19 04:00 Ordered Magnesium AM LABS Lab 07/12/19 04:00 Ordered Phosphorus AM LAB S Lab 07/12/19 04:00 Ordered Prothrombin Time INR AM LABS Lab 07/12/19 04:00 Ordered Prothrombin Time INR AM LABS Lab 07/13/19 04:00 Ordered Prothrombin Time INR AM LABS Lab 07/14/19 04:00 Ordered Labs from last 24 hours 07/11/19 07/11/19 07/11/19 06:21 05:20 05:20 WBC RBC Hgb Hct MCV MCH MCHC RDW Plt Count MPV Neut % (Auto) Lymph % (Auto) Greenlee % (Auto) Eos % (Auto) Baso % (Auto) Neut # (Auto) Lymph # (Auto) Greenlee # (Auto) Eos # (Auto) Baso # (Auto) Nucleated RBC % (a uto) Nucleated RBCs # PT 27.90 H INR 2.49 H Sodium 141 Potassium 3.4 L Chloride 101 Carbon Dioxide 30 H Anion Gap 13.4 BUN 15 Creatinine 0.8 Glucose 124 H POC Glucose 137 Calculated Osmolal ity 290 Calcium 9.2 Phosphorus 3.8 Magnesium 1.8 Total Bilirubin 0.4 AST 13 ALT 9 Alkaline Phosphata se 69 Total Protein 6.9 Albumin 4.0 Globulin 2.9 07/11/19 07/10/19 07/10/19 05:20 20:47 16:19 WBC 6.9 RBC 4.36 Hgb 12.8 Hct 40.0 MCV 91.7 MCH 29.4 MCHC 32.0 RDW 13.4 Plt Count 322 MPV 9.6 Neut % (Auto) 61.0 Lymph % (Auto) 24.7 Greenlee % (Auto) 10.7 Eos % (Auto) 2.9 Baso % (Auto) 0.7 Neut # (Auto) 4.2 Lymph # (Auto) 1.7 Greenlee # (Auto) 0.7 Eos # (Auto) 0.2 Baso # (Auto) 0.1 Nucleated RBC % (a uto) 0 Nucleated RBCs # 0.0 PT INR Sodium Potassium Chloride Carbon Dioxide Anion Gap BUN Creatinine Glucose POC Glucose 255 190 Calculated Osmolal ity Calcium Phosphorus Magnesium Total Bilirubin AST ALT Alkaline Phosphata se Total Protein Albumin Globulin 07/10/19 11:27 WBC RBC Hgb Hct MCV MCH MCHC RDW Plt Count MPV Neut % (Auto) Lymph % (Auto) Greenlee % (Auto) Eos % (Auto) Baso % (Auto) Neut # (Auto) Lymph # (Auto) Greenlee # (Auto) Eos # (Auto) Baso # (Auto) Nucleated RBC % (a uto) Nucleated RBCs # PT INR Sodium Potassium Chloride Carbon Dioxide Anion Gap BUN Creatinine Glucose POC Glucose 242 Calculated Osmolal ity Calcium Phosphorus Magnesium Total Bilirubin AST ALT Alkaline Phosphata se Total Protein Albumin Globulin Vitals: Last Vital Signs Temp 98.3 F 07/11/19 08:00 Pulse 60 07/11/19 08:00 Resp 16 07/11/19 08:00 BP 155/71 07/11/19 10:13 Pulse Ox 93 07/11/19 08:00 Discharge Plan Discharge Patient Disposition: Home Health Service Condition: Stable Prescriptions: New atorvastatin 40 mg Tablet 80 mg PO BEDTIME 30 Days Qty: 60 RF: 0 clonidine HCl 0.1 mg Tablet 0.1 mg PO BID 30 Days Qty: 60 RF: 0 chlorthalidone 25 mg Tablet 25 mg PO DAILY 30 Days Qty: 30 RF: 0 amlodipine 5 mg Tablet 10 mg PO DAILY 30 Days Qty: 30 RF: 0 aspirin 81 mg Tablet,Delayed Release (Dr/Ec) 81 mg PO DAILY 30 Days Qty: 30 RF: 0 metoprolol tartrate 25 mg Tablet 25 mg PO BID 30 Days Qty: 60 RF: 0 Celexa 10 mg tablet 10 mg PO DAILY 30 Days Qty: 30 RF: 0 Continued warfarin 5 mg tablet 5 mg PO DAILY Qty: 90 RF: 3 nitroglycerin [Nitrostat] 0.4 mg tablet, sublingual 0.4 mg SUBLINGUAL Q5M PRN (Reason: chest pain) Qty: 90 RF: 3 losartan 100 mg tablet 100 mg PO DAILY Qty: 90 RF: 3 torsemide 20 mg tablet 20 mg PO DAILY RF: 0 famotidine 40 mg tablet 40 mg PO DAILY RF: 0 tramadol 50 mg tablet See Rx Instructions .ROUTE .COMPLEX RF: 0 Nitro-Time 9 mg capsule, extended release 9 mg PO BID RF: 0 levothyroxine 150 mcg tablet 150 mcg PO DAILY RF: 0 flecainide 100 mg tablet 100 mg PO BID RF: 0 warfarin 1 mg Tablet See Rx Instructions .ROUTE .COMPLEX RF: 0 diazepam 5 mg tablet 5 mg PO TID PRN (Reason: MUSCLE SPASMS) RF: 0 Novolog Mix 70-30 U-100 Insuln 100 unit/mL (70-30) Solution See Rx Instructions .ROUTE .COMPLEX RF: 0 Vitamin D3 25 mcg (1,000 unit) Tablet 25 mcg PO DAILY RF: 0 Discontinued amlodipine 5 mg tablet 5 mg PO DAILY Qty: 90 RF: 3 metoprolol tartrate 50 mg tablet See Rx Instructions .ROUTE .COMPLEX RF: 0 Discharge Orders: Discharge Order (Routine); Ordered 07/11/19 Ordered By: Jf Montana Other Ambulatory Orders: Complete Blood Count w/Auto (Routine) Timeframe: 1 Week Location: Determined by Patient Ordered By: Jf Montana Comprehensive Metabolic Panel (Routine) Timeframe: 1 Week Facility: [facility] - Location: Lab - Main Lab Ordered By: Jf Montana Referrals: [facility] [Outside] Tiny Urrutia MD [Physician] - 1 month Jf Montana MD [Hospitalist] - Kvng Lal DO [Primary Care Provider] - Discharge Diet: Cardiac Discharge Activity: Resume usual activity Patient Instructions: Atrial Fibrillation, Metoprolol (By mouth), Clonidine (By mouth), Chlorthalidone (By mouth), Amlodipine (By mouth), Ischemic Stroke (DC), Self Care Measures After a Stroke (DC) Discharge Attestations Time Spent in Discharge Care*: less than 30 min Quality Metrics Clinical Quality Measures During this hospital stay, did patient experience: Stroke Contraindication to Antithrombotic: Antithrombotic prescribed Contraindication to Anticoagulation: Anticoagulation prescribed Contraindication to Statin: Statin prescribed Coding Level of Care Code Acute Management Psychologist for [facility] [place] Diagnoses Thalamic stroke I63.9 Atrial fibrillation I48.91 History of deep vein thrombosis Z86.718 Muscular dystrophy G71.00 Insulin dependent type 2 diabetes mellitus E11.9; Z79.4 Hypothyroidism E03.9 Hyperlipidemia E78.5 Hypertension I10
[2019-07-11 12:05] LABS: Glucose Point of Care 137 mg/dL (70-110)
== END 2019-07-11 13:03 | disposition home health service (06) | DRG 66 ==
LOC: ER 16:34 → MEDSURG 16:59
PROVIDERS: Emergency Medicine; Admitting Provider Family Medicine; PCP Family Medicine; Visit Provider Family Medicine
DX: I63.81 Other cerebral infarction due to occlusion or stenosis of small artery (principal); R20.8 Other disturbances of skin sensation; R29.702 NIHSS score 2; E11.9 Type 2 diabetes mellitus without complications; Z79.4 Long term (current) use of insulin; I48.91 Unspecified atrial fibrillation; Z79.01 Long term (current) use of anticoagulants; F41.9 Anxiety disorder, unspecified; I10 Essential (primary) hypertension; E78.5 Hyperlipidemia, unspecified; E03.9 Hypothyroidism, unspecified; Z86.718 Personal history of other venous thrombosis and embolism; G71.00 Muscular dystrophy, unspecified
CPT/HCPCS: 12345; 36415; 36416; 70450; 70544; 70548; 70551; 71045; 80053; 80061; 80307; 81003; 82962; 83036; 83735; 84100; 84443; 85025; 85610; 93005; 93306; 94664; 96372; 96375; 97110; 97161; 97530; 99283; A9579; G0378; J1815; J2405; J7030

== ENCOUNTER → 2019-10-09 16:32 | Outpatient (BNVA) | payer MEDICARE, OTHER, SELFPAY | PROVIDERS: PCP Family Medicine; Visit Provider Internal Medicine Cardiovascular Disease | DX: I48.0 Paroxysmal atrial fibrillation (principal); Z79.01 Long term (current) use of anticoagulants | CPT/HCPCS: 85025 ==

== ENCOUNTER 2020-06-08 13:26 | Outpatient (CLI) | payer MEDICARE, OTHER, SELFPAY ==
--- NOTE | 2020-06-08 13:30 | MM_ITS ---
WS: [id number] SCREENING DIGITAL MAMMOGRAM WITH CAD HISTORY: SCREENING COMPARISON: None available. Bilateral CC and MLO views submitted. Computer aided detection analyzed. Breast composition: There are scattered areas of fibroglandular density. Asymmetry in the lateral RIG HT breast measures 12 mm. There is also benign calcification in the anterior RIGHT breast. Bilateral breast arterial calcifications. MM/[place] [id number] IMPRESSION: BI-RADS: 0-Incomplete: Need additional imaging evaluation FOLLOW UP: Need Additional Imaging RIGHT breast: Spot compression views (CC and MLO). True ML. Ultrasound to follo w if abnormality persists.
== END 2020-06-08 13:27 | disposition home or self-care (01) ==
LOC: RADSHAW 13:29
PROVIDERS: PCP Family Medicine; Visit Provider Family Medicine
DX: Z12.31 Encounter for screening mammogram for malignant neoplasm of breast (principal)
CPT/HCPCS: 77067

== ENCOUNTER → 2020-09-02 15:39 | Outpatient (BNVA) | payer MEDICARE, OTHER, SELFPAY | PROVIDERS: PCP Family Medicine; Visit Provider Internal Medicine Cardiovascular Disease | DX: I11.0 Hypertensive heart disease with heart failure (principal); I50.33 Acute on chronic diastolic (congestive) heart failure; R06.02 Shortness of breath; M79.89 Other specified soft tissue disorders; Z86.718 Personal history of other venous thrombosis and embolism; I48.0 Paroxysmal atrial fibrillation; Z79.899 Other long term (current) drug therapy; E11.9 Type 2 diabetes mellitus without complications; Z79.4 Long term (current) use of insulin; E03.9 Hypothyroidism, unspecified; E78.2 Mixed hyperlipidemia; Z86.73 Personal history of transient ischemic attack (TIA), and cerebral infarction without residual deficits | CPT/HCPCS: 80048; 83880 ==

== ENCOUNTER 2020-09-04 14:09 | Outpatient (CLI) | payer MEDICARE, OTHER, SELFPAY ==
--- NOTE | 2020-09-04 14:00 | USCV_ITS ---
Fallon Miller Age: 75 Gender: F : 1945 Exam Date: 09/04/2020 14:29 Ordering Phys: Britton Jesus MD ([email or web address]) Technologist: Michelle Briseno Exam Location: [facility] Indication: soft tissue disorder, swelling lower extremities HISTORY: lower extremity edema PROCEDURES: The following venous structures were evaluated: common femoral vein, profunda vein, proximal portion of the greater saphenous vein, superficial femoral vein, and the popliteal vein. The venous duplex Doppler examination of both lower extremities was performed in the standard fashion. FINDINGS: Negative for DVT and superficial thrombus in right and left The veins were found to be easily compressible with spontaneous blood flow. Non pulsatile flow pattern. CONCLUSIONS No evidence of DVT in the above-mentioned identifiable veins. No evidence of thrombosis in the proximal segments of the greater saphenous veins bilaterally Dr Britton Jesus MD [facility] (Electronically Signed) Final Date: 08 September 2020 11:48 S
== END 2020-09-04 14:10 | disposition home or self-care (01) ==
PROVIDERS: PCP Internal Medicine Cardiovascular Disease; Visit Provider Internal Medicine Cardiovascular Disease
DX: M79.89 Other specified soft tissue disorders (principal)
CPT/HCPCS: 93970

== ENCOUNTER 2021-03-12 09:34 | Emergency (ER) | payer MEDICARE, OTHER, SELFPAY ==
[2021-03-12 09:50] VITALS: PULSE 103; RESP 16; TEMP 36.8; O2SAT 94; BMI 34.8
--- NOTE | 2021-03-12 09:53 | XR_ITS ---
WS: [id number] PORTABLE CHEST HISTORY: dyspnea/cough COMPARISON: 07/09/2019 Mildly hyperexpanded lungs. Very minimal linear atelectasis or scar at the LEFT costophrenic angle. N o pulmonary congestion. No pleural effusion or pneumothorax. Cardiac size: Moderately enlarged cardiac silhouette. Mediastinum/Aorta: Mild atherosclerosis aorta. Osteopenia. XR/XR chest 1V portable [id number] IMPRESSION: 1. Moderate cardiomegaly. Similar to the prior study. 2. Subsegmental atelectasis at the LEFT costophrenic angle. 3. No pneumonia or CHF.
--- NOTE | 2021-03-12 09:54 | ECG_ITS ---
[facility] Test Date: 2021-03-12 Pat Name: Fallon Miller Department: Room: Gender: Female Agricultural Equipment Operator: : 1945 Requested By: Tato Pickens Order Number: [id number] Oskar MD: Britton Jesus M.D. Measurements Intervals [place] Rate: 92 P: 71 CT: 209 QRS: -50 QRSD: 137 T: 113 QT: 380 QTc: 472 Interpretive Statements SINUS RHYTHM LEFT AXIS DEVIATION [QRS AXIS < -30] INTRAVENTRICULAR CONDUCTION DELAY [130+ ms QRS DURATION] LEFT VENTRICULAR HYPERTROPHY AND ST-T CHANGE [VOLTAGE CRITERIA PLUS ST/T ABNORMALITY] POSSIBLE ANTERIOR MYOCARDIAL INFARCTION , OF INDETERMINATE AGE [30 ms Q WAVE IN V3/V4, OR R < 0.2 mV IN V4] Compared to ECG 07/09/2019 14:52:31 Left ventricular hypertrophy now present ST (T wave) deviation now present Myocardial infarct finding now present Sinus bradycardia no longer present First degree AV block no longer present Electronically Signed On 03-12-2021 11:31:39 PRECISION THREAD GRINDER OPERATOR by Britton Jesus M.D. [email or web address]
[2021-03-12 09:56] VITALS: BP 141/66; PULSE 96; RESP 17; O2SAT 94
--- NOTE | 2021-03-12 10:00 | ED_ITS ---
HPI - Weakness General: Chief complaint: Weakness Stated complaint: NOT FEELING WELL/ LEG PAIN/ SOB Time Seen by Provider: 03/12/21 09:39 Source: patient Mode of arrival: EMS Limitations: no limitations History of Present Illness: 76-year-old female presents emergency room complaining of generally not feeling well for last 4 weeks. She is complaints of abdominal discomfort as well as some mild leg pain. She denies any fever sweats chills no chest pain no shortness of breath. She is some mild dysuria no flank pain. No hematuria that she is noted. Bowels generally have been normal. She not noticed any swelling in her legs. MD Complaint: generalized weakness Onset (ago): week(s) (4) Duration: constant Location: generalized Severity: mild Relieving factors: none Exacerbating factors: none Associated symptoms: Reports chest pain, chills, confusion, decreased appetite, diaphoresis, dysuria, easy bruising, fever(s), headache(s), myalgias, nausea, short of breath and vomiting; Denies melena, rash or syncope Review of Systems General: Reports: Other (Patient has near complete kline positive review of systems) Const: Reports: fever(s), chills and diaphoresis Card: Reports: chest pain; Denies: syncope GI: Reports: nausea and vomiting; Denies: melena : Reports: dysuria; Denies: flank pain, difficulty voiding, urinary frequency or urinary urgency Neuro: Reports: headache(s) and confusion Bertin/Lymph: Reports: easy bruising PFSH ED PFSH: Medical History Atrial fibrillation History of deep vein thrombosis History of right shoulder fracture Hyperlipidemia Hypertension Hypothyroidism Insulin dependent type 2 diabetes mellitus Left leg swelling Muscular dystrophy Surgical History H/O hemorrhoidectomy History of appendectomy History of left knee replacement History of tonsillectomy and adenoidectomy Hx of cataract extraction Hx of cholecystectomy Hx of hysterectomy Family History Father Stroke Diabetes Mother CAD (coronary artery disease) Cancer Dementia Diabetes Stroke Brother Diabetes Denies family history of Clotting disorder Chronic kidney disease (CKD) Suicide Anesthesia complication Bleeding disorder Lung disease Social History Smoking and tobacco status: never smoked Physical Exam Const: COMMON NORMALS: patient oriented x3 GENERAL APPEARANCE: cooperative, comfortable and well kempt NUTRITIONAL APPEARANCE: obese ORIENTATION/CONSCIOUSNESS: Yes awake, Yes oriented to person, Yes oriented to place and Yes oriented to time HENMT: COMMON NORMALS: normocephalic, atraumatic, hearing grossly normal bilaterally, EAC's normal, TM's normal bilaterally and Normal external nose present HEAD & SCALP: normocephalic and atraumatic NOSE: Normal external nose present EXTERNAL AUDITORY CANAL: EAC's normal TYMPANIC MEMBRANE: TM's normal bilaterally MOUTH: Normal oral and palatal mucosa present, lip normal and tongue normal THROAT: posterior oropharynx normal and tonsils normal Eye: COMMON NORMALS: Equal, round and reactive pupils present, EOMs intact bilaterally, conjunctivae normal and no scleral icterus CONJUNCTIVA: Yes conjunctivae normal PUPIL: Yes Equal, round and reactive pupils present Neck/C-Spine: COMMON NORMALS: no meningeal signs, no JVD and Thyroid normal THYROID: Thyroid normal and asymmetrical Lymph: LYMPHATIC: no lymphadenopathy noted Resp: COMMON NORMALS: normal respiratory effort, No retractions, No use of accessory muscles and clear to auscultation bilaterally AUSCULTATION: clear to auscultation bilaterally Cardio: COMMON NORMALS: no JVD, regular rate, regular rhythm and No murmurs present (Cardio) RATE: regular rate RHYTHM: regular rhythm HEART SOUNDS: no murmurs GI: COMMON NORMALS: Soft to palpation and No hepatosplenomegaly present AUSCULTATION: Yes normoactive bowel sounds PALPATION: Yes Soft to palpation, No Tenderness to palpation present (GI), No Guarding due to palpation present (GI) and Yes No hepatosplenomegaly present : COMMON NORMALS: Yes no CVA tenderness BLADDER/KIDNEY EXAM: Yes no CVA tenderness Back/Pelvis: COMMON NORMALS: no CVA tenderness LUMBAR SPINE/LOWER BACK: Yes normal to inspection Extremity: COMMON NORMALS: normal to inspection, capillary refill normal, no clubbing, cyanosis or edema, no calf tenderness and no pedal edema Neuro: COMMON NORMALS: patient oriented x3 SENSORIUM/ORIENTATION: Yes oriented to person, Yes oriented to place and Yes oriented to time MENINGEAL SIGNS: Yes no meningeal signs Psych: APPEARANCE: Yes well kempt Skin: COMMON NORMALS: no rashes or lesions noted GENERAL SKIN EXAM: no rashes or lesions noted Course Vital Signs: Vital signs: Vital Signs Temperature 98.2 F 03/12/21 09:50 Pulse Rate 65 03/12/21 14:20 Respiratory Rate 16 03/12/21 14:20 Blood Pressure 135/65 03/12/21 14:20 Pulse Oximetry 99 03/12/21 14:20 MDM - Weakness Medical Decision Making Labs and imaging reviewed. Patient has leukocytosis with left shift. Her troponin is negative. On exam no sign of DVT. Treat her cystitis. Also encouraged her to follow-up with her doctor next week to recheck lab work including sodium and her creatinine. Lab Data : 03/12/21 09:58 03/12/21 09:58 Radiology Impressions Chest X-Ray 03/12/21 09:53 IMPRESSION: 1. Moderate cardiomegaly. Similar to the prior study. 2. Subsegmental atelectasis at the LEFT costophrenic angle. 3. No pneumonia or CHF. Abdomen/Pelvis CT 03/12/21 11:19 IMPRESSION: 1. No acute abdominal or pelvic abnormalities. 2. Sigmoid diverticulosis without acute diverticulitis. 3. Prior cholecystectomy and appendectomy. 4. Stable hepatic and renal cysts. 5. No ascites. 6. Mild atherosclerotic plaque within the aorta extending into the femoral arteries. Laboratory Results WBC 16.2 10^3/uL (4.0-10.0) H 03/12/21 09:58 RBC 3.52 10^6/uL (4.1-5.3) L 03/12/21 09:58 Hgb 10.3 g/dL (11.5-15.3) L 03/12/21 09:58 Hct 32.0 % (37.0-47.0) L 03/12/21 09:58 MCV 90.9 fl (81-99) 03/12/21 09:58 MCH 29.3 pg (28.0-34.0) 03/12/21 09:58 MCHC 32.2 g/dL (30.0-36.0) 03/12/21 09:58 RDW 13.7 % (12.1-15.1) 03/12/21 09:58 Plt Count 843 10^3/cmm (130-400) H 03/12/21 09:58 MPV 9.7 fL (7.4-10.4) 03/12/21 09:58 Neut % (Auto) 70.4 % 03/12/21 09:58 Lymph % (Auto) 15.3 % 03/12/21 09:58 [place] % (Auto) 11.7 % 03/12/21 09:58 Eos % (Auto) 0.6 % 03/12/21 09:58 Baso % (Auto) 0.6 % 03/12/21 09:58 Neut # (Auto) 11.45 10^3/uL (1.8-7.7) H 03/12/21 09:58 Lymph # (Auto) 2.5 10^3/uL (0.8-4.8) 03/12/21 09:58 [place] # (Auto) 1.9 10^3/uL (0.2-0.9) H 03/12/21 09:58 Eos # (Auto) 0.1 10^3/uL (0.0-0.8) 03/12/21 09:58 Baso # (Auto) 0.1 10^3/uL (0.0-0.1) 03/12/21 09:58 Nucleated RBC % (auto) 0 % 03/12/21 09:58 Nucleated RBCs # 0.0 /100WBC 03/12/21 09:58 Sodium 129 mmol/L (136-145) L 03/12/21 09:58 Potassium 4.3 mmol/L (3.5-5.1) 03/12/21 09:58 Chloride 90 mmol/L (98-107) L 03/12/21 09:58 Carbon Dioxide 23 mmol/L (22-29) 03/12/21 09:58 Anion Gap 20.3 (5-19) H 03/12/21 09:58 BUN 37 mg/dL (8-23) H 03/12/21 09:58 Creatinine 1.5 mg/dL (0.5-0.9) H 03/12/21 09:58 GFR Calculation Not Reportable 03/12/21 09:58 Glucose 370 mg/dL (65-115) H 03/12/21 09:58 Calculated Osmolality 292 mOsm/kg (285-295) 03/12/21 09:58 Calcium 8.2 mg/dL (8.5-10.5) L 03/12/21 09:58 Total Bilirubin 0.8 mg/dL (0.15-1.2) 03/12/21 09:58 AST 14 U/L (0-32) 03/12/21 09:58 ALT 11 U/L (0-33) 03/12/21 09:58 Alkaline Phosphatase 72 IU/L (35-105) 03/12/21 09:58 Troponin T Baseline 23 ng/L (0-10) H 03/12/21 09:58 Troponin T 120 Minute 22.01 ng/L (0-10) H 03/12/21 12:30 Delta Troponin T -0.99 ABS# (0-10) L 03/12/21 12:30 Total Protein 6.8 g/dL (6.6-8.7) 03/12/21 09:58 Albumin 3.5 g/dL (3.5-5.2) 03/12/21 09:58 Globulin 3.3 g/dL (1.3-4.6) 03/12/21 09:58 Lipase 17 U/L (13-60) 03/12/21 09:58 Urine Color Yellow (Yellow) 03/12/21 09:49 Urine Appearance Hazy (CLEAR) A 03/12/21 09:49 Urine pH 5 (5-7) 03/12/21 09:49 Ur Specific [place] 1.015 (1.005-1.030) 03/12/21 09:49 Urine Protein Neg (Negative) 03/12/21 09:49 Urine Glucose (UA) 1+ (Normal) H 03/12/21 09:49 Urine Ketones 1+ (Negative) H 03/12/21 09:49 Urine Blood Neg (Negative) 03/12/21 09:49 Urine Nitrate Negative (Negative) 03/12/21 09:49 Urine Bilirubin 1+ (Negative) H 03/12/21 09:49 Urine Urobilinogen Norm mg/dL (Negative) 03/12/21 09:49 Ur Leukocyte Esterase 2+ (Negative) H 03/12/21 09:49 Urine RBC 0-4 /hpf (0-2) H 03/12/21 09:49 Urine WBC 25-40 /hpf (0-5) H 03/12/21 09:49 Ur Squamous Epith Cells 10-15 /hpf (0-5) H 03/12/21 09:49 Amorphous Sediment Not Reportable 03/12/21 09:49 Urine Bacteria 1+ /hpf (NONE) H 03/12/21 09:49 Hyaline Casts 0-4 /lpf H 03/12/21 09:49 Urine Mucus Trace /hpf 03/12/21 09:49 Discharge Plan Discharge Patient Disposition: Home Clinical Impression: Cystitis, Hyponatremia Condition: Stable Prescriptions: New Macrobid 100 mg capsule 100 mg PO BID 7 Days Qty: 14 0RF Rx Instructions: must administer with a meal/food No Action potassium chloride 20 mEq tablet extended release 20 meq PO DAILY Qty: 90 3RF nitroglycerin [Nitrostat] 0.4 mg tablet, sublingual 0.4 mg SUBLINGUAL Q5M PRN (Reason: chest pain) Qty: 100 3RF Rx Instructions: do not exceed 3 doses per episode tramadol 50 mg tablet 50 - 100 mg PO Q6H PRN (Reason: Pain) 0RF levothyroxine 150 mcg tablet 150 mcg PO DAILY 0RF diazepam 5 mg tablet 5 mg PO TID PRN (Reason: unknown) 0RF Novolin 70/30 U-100 Insulin 100 unit/mL (70-30) Suspension See Rx Instructions .ROUTE .COMPLEX 0RF Rx Instructions: 40 units subcutaneously qam and if blood sugar is high will take 30 units bedtime torsemide 20 mg tablet 40 mg PO QAM 0RF amlodipine 5 mg tablet 5 mg PO BID 0RF Nitro-Time 9 mg capsule, extended release 9 mg PO BID 0RF flecainide 100 mg tablet 100 mg PO BID 0RF metoprolol tartrate 50 mg tablet 50 mg PO BID 0RF losartan 100 mg tablet 100 mg PO QPM 0RF warfarin 1 mg tablet See Rx Instructions mg .ROUTE .COMPLEX 0RF Protocol: Dose Management Condition: Monday Dose/Route: 6 mg Instruction: 1 x 1 mg tablet, 1 x 5 mg tablet Condition: Monday Dose/Route: 6 mg Instruction: 1 x 1 mg tablet, 1 x 5 mg tablet Condition: Monday Dose/Route: 5 mg Instruction: 1 x 5 mg tablet Condition: Monday Dose/Route: 6 mg Instruction: 1 x 1 mg tablet, 1 x 5 mg tablet Condition: Dose/Route: 6 mg Instruction: 1 x 1 mg tablet, 1 x 5 mg tablet Condition: Monday Dose/Route: 6 mg Instruction: 1 x 1 mg tablet, 1 x 5 mg tablet Condition: Monday Dose/Route: 6 mg Instruction: 1 x 1 mg tablet, 1 x 5 mg tablet Protocol Text: Adjustment Start Date: Monday03/03/21 INR Value: 3.4 INR Date: 02/22/21 Recheck Date: 03/10/21 Rx Instructions: 6MG PO DAILY EXCEPT ON MONDAY TAKES 5MG DAILY Discharge Orders: Discharge ED (Routine); Ordered 03/12/21 Ordered By: Tato Cotter Referrals: Britton Jesus MD [Primary Care Provider] - Discharge Diet: Usual diet Discharge Activity: Increase activity as tolerated Patient Instructions: Opioid Safety Activity Restrictions/Additional Instructions: Follow-up with your primary care doctor within 1 week to recheck your sodium level in your blood. Return if you have further problems. Coding Level of Care Code ED Cooler Service Supervisor for Estefaniag Fwd Exam Comprehensive
[2021-03-12 10:05] LABS: Basophils # 0.1 10^3/uL (0.0-0.1); Basophils % 0.6 %; Eosinophils # 0.1 10^3/uL (0.0-0.8); Eosinophils % 0.6 %; Hemoglobin 10.3 g/dL (11.5-15.3); Lymphocytes # 2.5 10^3/uL (0.8-4.8); Lymphocytes % 15.3 %; Mean Corpuscular HGB Conc 32.2 g/dL (30.0-36.0); Mean Corpuscular Hemoglobin 29.3 pg (28.0-34.0); Mean Corpuscular Volume 90.9 fl (81-99); Mean Platelet Volume 9.7 fL (7.4-10.4); Monocytes # 1.9 10^3/uL (0.2-0.9); Monocytes % 11.7 %; Neutrophils # 11.45 10^3/uL (1.8-7.7); Neutrophils % 70.4 %; Nucleated Red Blood Cells % 0 %; Platelet Count 843 10^3/cmm (130-400); Red Blood Count 3.52 10^6/uL (4.1-5.3); Red Cell Distribution Width 13.7 % (12.1-15.1); White Blood Count 16.2 10^3/uL (4.0-10.0)
[2021-03-12 10:09] LABS: Bilirubin Urine 1+ (Negative); Blood Urine Neg (Negative); Glucose Urine UA 1+ (Normal); Ketones Urine 1+ (Negative); Leukocyte Esterase Urine 2+ (Negative); Nitrate Urine Negative (Negative); Protein Urine Neg (Negative); Specific Gravity, Urine 1.015 (1.005-1.030); Urine Appearance Hazy (CLEAR); Urine Color Yellow (Yellow); Urobilinogen Urine Norm (Negative); pH Urine 5 (5-7)
[2021-03-12 10:10] LABS: Add Urine Microscopic? YES
[2021-03-12 10:24] LABS: Bacteria Urine 1+ /hpf; RBC Urine 0-4 /hpf (0-2); WBC Urine 25-40 /hpf (0-5)
[2021-03-12 10:25] LABS: Add Urine Culture? Yes; Hyaline Casts Urine 0-4 /lpf; Mucus Urine TRACE /hpf
[2021-03-12 10:28] LABS: Alanine Aminotransferase 11 U/L (0-33); Albumin Level 3.5 g/dL (3.5-5.2); Alkaline Phosphatase 72 IU/L (35-105); Anion Gap 20.3 (5-19); Aspartate Amino Transferase 14 U/L (0-32); Blood Urea Nitrogen 37 mg/dL (8-23); Calcium 8.2 mg/dL (8.5-10.5); Carbon Dioxide 23 mmol/L (22-29); Chloride 90 mmol/L (98-107); Globulin 3.3 g/dL (1.3-4.6); Glucose 370 mg/dL (65-115); Lipase 17 U/L (13-60); Osmolality Calculated 292 mOsm/kg (285-295); Potassium 4.3 mmol/L (3.5-5.1); Sodium 129 mmol/L (136-145); Total Bilirubin 0.8 mg/dL (0.15-1.2); Total Protein 6.8 g/dL (6.6-8.7)
[2021-03-12 10:29] LABS: Troponin(5th) Baseline 23 ng/L (0-10)
--- NOTE | 2021-03-12 10:44 | PC.PHAR ---
PT STATES SHE TAKES CARE OF HER OWN MEDICATIONS-PT STATES SHE IS UNSURE OF THE MG OF WARFARIN SHE IS TAKING ON WHAT DAYS-ADRIENNE FROM [facility] STATES LAST INR WAS 02/22/21 AND SUPPOSE TO START THIS DOSE ENTERED BELOW ON 03/03/21 ADRIENNE STATES PT HASNT HAD A INR SINCE -PT STATES SHE BUYS HER INSULIN OTC AT [facility] NOTES ARE MADE IN THE PHARMACY COMMENTS
[2021-03-12 11:06] VITALS: BP 143/69; PULSE 93; O2SAT 93
--- NOTE | 2021-03-12 11:19 | CT_ITS ---
WS: [id number] CT ABDOMEN AND PELVIS WITH CONTRAST HISTORY: Abdominal and leg pain for 4 weeks. TECHNIQUE: Imaging performed of the abdomen and pelvis with IV contrast. Single phase imaging of the abdomen. Coronal and sagittal reformats are submitted. All CT scans at [facility] use at [facility] [facility] one of these dose optimization techniques: automated exposure control; mA and/or kV adjustment per patient size (includes targeted exams where dose is matched to clinical indication); or iterative re construction. IV CONTRAST: Visipaque 320; 95 mL IV. Oral contrast: No DLP: 1786.72 mGy.cm COMPARISON: 10/17/2018 Lower thorax: Lung bases are clear. Moderately enlarged heart. No effusion. Small hiatal hernia. Liver/biliary system: Normal size liver. 13 mm cyst in the LEFT lobe has slightly increased in size s shaq the prior study. No solid mass. No bile duct dilatation. Normal portal vein. Gallbladder: Status post cholecystectomy. Pancreas: Normal size pancreas and pancreatic duct. No adjacent inflammation. Spleen: Coarse calcification at the splenic hilum may be from a calcified aneurysm. No change. Adrenal glands: Normal. Right kidney: Normal size. Exophytic 15 mm cortical cyst from the mid kidney. No obstruction. Left kidney: No obstruction or solid mass. There is an exophytic cyst extending medially from the low er measuring 12 mm. Aorta: Mild atherosclerosis with no aneurysm. No occlusions of aorta. Continued calcification continu es into the femoral arteries bilaterally. Lymphadenopathy: None. Free fluid: None. GI tract: Nondistended stomach. No inflammatory changes. The appendix is been removed. No GI tract ob struction. No submucosal edema or enhancement. There are a few diverticula in the sigmoid colon. No a cute inflammation. Abdominal wall: Unremarkable abdominal wall. No hernia. Pelvis: No free fluid in the pelvis. Urinary bladder is minimally distended. No adenopathy. Bones: Mild degenerative changes in the spine. No destructive bone lesions. CT/CT abdomen pelvis w con* [id number] IMPRESSION: 1. No acute abdominal or pelvic abnormalities. 2. Sigmoid diverticulosis without acute diverticulitis. 3. Prior cholecystectomy and appendectomy. 4. Stable hepatic and renal cysts. 5. No ascites. 6. Mild atherosclerotic plaque within the aorta extending into the femoral art eries.
[2021-03-12] MEDS: iodixanol 320 mg/mL 100mL Btl IV (11:36)
--- NOTE | 2021-03-12 11:54 | ECG_ITS ---
[facility] Test Date: 2021-03-12 Pat Name: Fallon Miller Department: Room: Gender: Female Surveillance Supervisor: : 1945 Requested By: Tato Pickens Order Number: [id number] Reading MD: ARTI SOUSA Measurements Intervals Oscar Rate: 91 P: 81 KS: 204 QRS: -53 QRSD: 138 T: 109 QT: 384 QTc: 474 Interpretive Statements SINUS RHYTHM LEFT AXIS DEVIATION [QRS AXIS < -30] INTRAVENTRICULAR CONDUCTION DELAY [130+ ms QRS DURATION] LEFT VENTRICULAR HYPERTROPHY AND ST-T CHANGE [VOLTAGE CRITERIA PLUS ST/T ABNORMALITY] POSSIBLE ANTERIOR MYOCARDIAL INFARCTION , OF INDETERMINATE AGE [30 ms Q WAVE IN V3/V4, OR R < 0.2 mV IN V4] Compared to ECG 03/12/2021 10:41:25 No significant changes Electronically Signed On 03-13-2021 17:47:31 SENIOR POLICY ASSOCIATE by ARTI SOUSA [id number]
[2021-03-12] MEDS: ondansetron 2 mg/ML SDV 2 mL 4 MG IVP (12:32)
[2021-03-12] MEDS: sodium chloride 0.9% 1,000 ML 999 ML IV (12:33)
[2021-03-12 13:11] LABS: Troponin 5 2HR 22.01 ng/L (0-10)
[2021-03-12 13:12] LABS: Troponin 5 2HR Delta -0.99 ABS# (0-10)
[2021-03-12 13:31] VITALS: BP 142/65; PULSE 90; O2SAT 92
[2021-03-12] MEDS: cefTRIAXone 1,000 MG in sodium chloride 0.9% (plus) 50 ML 100 MG IV (13:36)
[2021-03-12 14:20] VITALS: BP 135/65; PULSE 65; RESP 16; O2SAT 99
== END 2021-03-12 14:29 | disposition home or self-care (01) ==
PROVIDERS: Emergency Provider Family Medicine; PCP Internal Medicine Cardiovascular Disease
DX: E87.1 Hypo-osmolality and hyponatremia (principal); N30.90 Cystitis, unspecified without hematuria; Z79.4 Long term (current) use of insulin; Z79.01 Long term (current) use of anticoagulants; E78.5 Hyperlipidemia, unspecified; I10 Essential (primary) hypertension; E11.9 Type 2 diabetes mellitus without complications; G71.00 Muscular dystrophy, unspecified
CPT/HCPCS: 36415; 71045; 74177; 80053; 81001; 83690; 84484; 85025; 87086; 93005; 96365; 96375; 99284; J0696; J2405; J7030; Q9967

== ENCOUNTER → 2021-05-21 09:33 | Outpatient (BNVA) | payer MEDICARE, OTHER, SELFPAY | PROVIDERS: PCP Internal Medicine Cardiovascular Disease; Visit Provider Internal Medicine Cardiovascular Disease | DX: R07.89 Other chest pain (principal); E11.9 Type 2 diabetes mellitus without complications; Z79.4 Long term (current) use of insulin; E78.2 Mixed hyperlipidemia; I10 Essential (primary) hypertension; I48.0 Paroxysmal atrial fibrillation; T45.516A Underdosing of anticoagulants, initial encounter; Z91.120 Patient's intentional underdosing of medication regimen due to financial hardship | CPT/HCPCS: 99213; 99214 ==

== ENCOUNTER → 2021-06-09 14:26 | Outpatient (BNVA) | payer MEDICARE, OTHER, SELFPAY | PROVIDERS: PCP Internal Medicine Cardiovascular Disease; Visit Provider Internal Medicine Cardiovascular Disease | DX: I48.0 Paroxysmal atrial fibrillation (principal); Z79.01 Long term (current) use of anticoagulants; E11.9 Type 2 diabetes mellitus without complications; Z79.4 Long term (current) use of insulin; I10 Essential (primary) hypertension; Z86.718 Personal history of other venous thrombosis and embolism; Z79.899 Other long term (current) drug therapy; E78.2 Mixed hyperlipidemia | CPT/HCPCS: 99214 ==

== ENCOUNTER → 2021-06-18 08:20 | Outpatient (BNVA) | payer MEDICARE, OTHER, SELFPAY | PROVIDERS: PCP Internal Medicine Cardiovascular Disease; Visit Provider Internal Medicine Cardiovascular Disease | DX: Z79.01 Long term (current) use of anticoagulants (principal) ==

== ENCOUNTER → 2021-06-25 11:02 | Outpatient (BNVA) | payer MEDICARE, OTHER, SELFPAY | PROVIDERS: PCP Internal Medicine Cardiovascular Disease; Visit Provider Internal Medicine Cardiovascular Disease | DX: Z79.01 Long term (current) use of anticoagulants (principal) ==

== ENCOUNTER → 2021-07-01 08:44 | Outpatient (BNVA) | payer MEDICARE, OTHER, SELFPAY | PROVIDERS: PCP Internal Medicine Cardiovascular Disease; Visit Provider Internal Medicine Cardiovascular Disease | DX: Z79.01 Long term (current) use of anticoagulants (principal) ==

== ENCOUNTER → 2021-07-16 10:09 | Outpatient (BNVA) | payer MEDICARE, OTHER, SELFPAY | PROVIDERS: PCP Internal Medicine Cardiovascular Disease; Visit Provider Internal Medicine Cardiovascular Disease | DX: Z79.01 Long term (current) use of anticoagulants (principal) ==

== ENCOUNTER → 2021-08-30 11:02 | Outpatient (BNVA) | payer MEDICARE, OTHER, SELFPAY | PROVIDERS: PCP Internal Medicine Cardiovascular Disease; Visit Provider Internal Medicine Cardiovascular Disease | DX: Z79.01 Long term (current) use of anticoagulants (principal) | CPT/HCPCS: 85610 ==

== ENCOUNTER → 2021-09-07 11:01 | Outpatient (BNVA) | payer MEDICARE, OTHER, SELFPAY | PROVIDERS: PCP Internal Medicine Cardiovascular Disease; Visit Provider Internal Medicine Cardiovascular Disease | DX: Z79.01 Long term (current) use of anticoagulants (principal) ==

== ENCOUNTER 2021-12-16 15:35 | Outpatient (CLI) | payer MEDICARE, OTHER, SELFPAY ==
--- NOTE | 2021-12-16 15:55 | XR_ITS ---
WS: [id number] Exam: XR thoracic spine 3V* [id number] Date/Time of Exam: 12/16/2021 4:03 PM Reason For Exam: fall and back pain No acute fracture or dislocation. There is spondylosis and degenerative change of the T-spine. There is osteopenia. Normal paraspinal soft tissues. XR/XR thoracic spine 3V* [id number] IMPRESSION: 1. Degenerative changes and osteopenia. 2. No fracture or malalignment.
--- NOTE | 2021-12-16 15:55 | XR_ITS ---
WS: [id number] Exam: XR chest 2V* [id number] Date/Time of Exam: 12/16/2021 4:03 PM Reason For Exam: fall, rib pain Comparison 03/12/2021. The lungs are clear and fully expanded. Heart size is top limits normal. No pulmonary infiltrates or pleural effusions are noted. The bony thorax appears to be intact. Old proximal right humeral fractur e. XR/XR chest 2V* [id number] IMPRESSION: 1. No acute cardiopulmonary finding.
--- NOTE | 2021-12-16 15:55 | XR_ITS ---
WS: [id number] Exam: XR lumbar spine 2-3V* [id number] Date/Time of Exam: 12/16/2021 4:03 PM Reason For Exam: fall, back pain No acute fracture or dislocation. Facet arthropathy at all levels. Mild spondylosis. Marked osteopeni a. Disc spaces are relatively well maintained. Moderate levoscoliosis. XR/XR lumbar spine 2-3V* [id number] IMPRESSION: 1. No fracture or malalignment. 2. Degenerative changes and osteopenia. Levoscoliosis.
== END 2021-12-16 15:36 | disposition home or self-care (01) ==
LOC: RAD 15:39
PROVIDERS: PCP Family Medicine; Visit Provider Nurse Practitioner Family
DX: R07.81 Pleurodynia (principal); W19.XXXA Unspecified fall, initial encounter; M54.6 Pain in thoracic spine; M85.88 Other specified disorders of bone density and structure, other site; M41.86 Other forms of scoliosis, lumbar region
CPT/HCPCS: 71046; 72072; 72100

== ENCOUNTER 2022-02-01 11:09 | Outpatient (CLI) | payer MEDICARE, OTHER, SELFPAY ==
[2022-02-01 12:40] LABS: INR 1.12 (0.83-1.21); Prothrombin Time (Patient) 14.8 Seconds (12.0-15.1)
== END 2022-02-01 11:10 | disposition home or self-care (01) ==
LOC: LAB 11:14
PROVIDERS: PCP Family Medicine; Visit Provider Internal Medicine Cardiovascular Disease
DX: I48.0 Paroxysmal atrial fibrillation (principal)
CPT/HCPCS: 36415; 85610

== ENCOUNTER → 2022-06-20 14:54 | Outpatient (BNVA) | payer MEDICARE, OTHER, SELFPAY | PROVIDERS: PCP Family Medicine; Visit Provider Family Medicine | DX: Z79.899 Other long term (current) drug therapy (principal); I10 Essential (primary) hypertension; E78.5 Hyperlipidemia, unspecified; E03.9 Hypothyroidism, unspecified; E11.9 Type 2 diabetes mellitus without complications; Z79.4 Long term (current) use of insulin | CPT/HCPCS: 80053; 80061; 83036; 84443; 85025 ==

== ENCOUNTER → 2022-07-28 13:02 | Outpatient (BNVA) | payer MEDICARE, OTHER, SELFPAY | PROVIDERS: PCP Family Medicine; Visit Provider Internal Medicine Cardiovascular Disease | DX: R07.89 Other chest pain (principal); F41.9 Anxiety disorder, unspecified; M54.9 Dorsalgia, unspecified; Z79.01 Long term (current) use of anticoagulants; Z79.899 Other long term (current) drug therapy; Z86.718 Personal history of other venous thrombosis and embolism; E11.9 Type 2 diabetes mellitus without complications; Z79.4 Long term (current) use of insulin; E78.2 Mixed hyperlipidemia; I10 Essential (primary) hypertension; I48.0 Paroxysmal atrial fibrillation; Z86.73 Personal history of transient ischemic attack (TIA), and cerebral infarction without residual deficits | CPT/HCPCS: 99215 ==

== ENCOUNTER 2022-08-25 09:44 | Outpatient (CLI) | payer MEDICARE, OTHER, SELFPAY ==
[2022-08-25 10:02] VITALS: BMI 34.6
--- NOTE | 2022-08-25 10:02 | NMCV_ITS ---
NM chito perf SPECT r/s* [id number] Fallon Miller Age: 77 Gender: F : 1945 Exam Date: 08/25/2022 10:02 Ordering Phys: Gabriel Sommers MD ([email or web address]) Technologist: MAXIM Izquierdo Exam Location: [facility] Indications: CHEST PAIN STRESS TEST Please see separate stress test report in [facility] for full findings IMAGE PROTOCOL Rest/Stress 1 Lexiscan Day Radiopharmaceutical Dose (mCi) Administration Site Administered by Rest: Tc-99m 10.6 IV MAXIM Guadalupe Sestamibi Stress:Tc-99m 32.7 IV MAXIM Guadalupe Sestamibi Rest: 25-Aug-2022 60 Discovery 630 Stress: 25-Aug-2022 30 Discovery 630 0.4mg Lexiscan. Images obtained in supine and prone position. SPECT RESULTS Technical Quality: Excellent Raw Data Analysis: Normal Image Corrections: No attenuation or motion correction applied Summed Stress Score: 1 Summed Rest Score: 2 Summed Difference Score: 0 PERFUSION FINDINGS Small area of slightly decreased tracer uptake was noted in the mid and apical inferior wall regions. No significant reversibility was noted in this regions FUNCTIONAL RESULTS (calculated via Gated SPECT) Stress Image LV EF (%): 62 Stress EDV (mL):133 TID: 1.01 Stress ESV (mL):51 FUNCTIONAL FINDINGS: Segmental wall motion analysis revealing no gross wall motion normalities. IMPRESSIONS 1. Myocardial perfusion imaging revealing a small area of persistent slightly decreased tracer uptake was noted in the mid and apical inferior wall region, most likely of present attrition artifact. 2. Normal LV ejection fraction of 62%. 3. LV wall motion analysis revealing no gross wall motion abnormalities. 4. Slightly increased LV volume Low probability for coronary ischemia, based on the above findings No similar previous studies are available for comparison Dr Britton Jesus MD [facility] (Electronically Signed) Final Date: 25 August 2022 22:45 S
--- NOTE | 2022-08-25 10:02 | ECG_ITS ---
[facility] Test Date: 2022-08-25 Pat Name: Fallon Miller Department: Room: Gender: Female Lead Tank Mechanic: Jazmyne SilvaNeto : 1945 Requested By: Gabriel Sommers Order Number: [id number] Oskar MD: Britton Jesus M.D. Interpretive Statements NAME OF STUDY: LEXISCAN SESTAMIBI STRESS TEST INDICATION: Chest Pain, PROCEDURE: At the baseline, the EKG revealed sinus bradycardia with a rate of 56 bpm. Nonspecific IVCD. Left axis deviation. Poor R wave progression. Possible old septal SC.. The baseline heart was 56 bpm with a blood pressue of 155/77 mm of Hg Lexiscan was infused over a period of 20 seconds. A total of 0.4 milligrams of Lexiscan was infused. The stress phase was continued for a total of 5 minutes. Heart rate at the end of the stress phase was 66 bpm with a blood pressure 150/75 mm of Hg. The EKG at the peak infusion revealed no significant changes. Sestamibi was injected 20 seconds after the Lexiscan infusion. Heart rate at the end of the recovery phase was 65 bpm with a blood pressure of 140/68 mm of Hg. CONCLUSION: 1. No significant EKG changes with the LexiScan infusion 2. No LexiScan induced chest pain or cardiac arrhythmia 3. Normal blood pressure and heart rate response 4. Sestamibi/sestamibi perfusion scan pending; see separate report. Electronically Signed On 08-30-2022 8:40:35 CDT by Britton Jesus M.D. [id number]
[2022-08-25] MEDS: regadenoson 0.4 Mg/5 ml Syringe IVP (11:27)
[2022-08-25 11:36] VITALS: BP 140/68; PULSE 65
== END 2022-08-25 09:45 | disposition home or self-care (01) ==
LOC: CDL 09:45
PROVIDERS: PCP Family Medicine; Visit Provider Internal Medicine Cardiovascular Disease
DX: R07.9 Chest pain, unspecified (principal)
CPT/HCPCS: 36415; 78452; 93017; 96374; A9500; J2785

== ENCOUNTER → 2022-12-01 14:03 | Outpatient (BNVA) | payer MEDICARE, OTHER, SELFPAY | PROVIDERS: PCP Family Medicine; Visit Provider Internal Medicine Cardiovascular Disease | DX: I48.0 Paroxysmal atrial fibrillation (principal); Z53.9 Procedure and treatment not carried out, unspecified reason | CPT/HCPCS: 93793 ==

== ENCOUNTER → 2023-01-25 13:08 | Outpatient (BNVA) | payer MEDICARE, OTHER, SELFPAY | PROVIDERS: PCP Family Medicine; Visit Provider Family Medicine | DX: E11.9 Type 2 diabetes mellitus without complications (principal); Z79.4 Long term (current) use of insulin | CPT/HCPCS: 80053; 80061; 83036; 84443; 85025 ==

== ENCOUNTER → 2023-03-08 13:12 | Outpatient (BNVA) | payer MEDICARE, OTHER, SELFPAY | PROVIDERS: PCP Family Medicine; Visit Provider Internal Medicine Cardiovascular Disease | DX: I63.9 Cerebral infarction, unspecified (principal) | CPT/HCPCS: 85610 ==

== ENCOUNTER → 2023-09-04 11:33 | Outpatient (BNVA) | payer MEDICARE, OTHER, SELFPAY | PROVIDERS: PCP Family Medicine; Visit Provider Internal Medicine Cardiovascular Disease | DX: I48.0 Paroxysmal atrial fibrillation (principal); Z79.01 Long term (current) use of anticoagulants; R07.89 Other chest pain; I10 Essential (primary) hypertension; E78.2 Mixed hyperlipidemia; Z86.718 Personal history of other venous thrombosis and embolism | CPT/HCPCS: 99214 ==

== ENCOUNTER → 2023-10-09 11:05 | Outpatient (BNVA) | payer MEDICARE, OTHER, SELFPAY | PROVIDERS: PCP Family Medicine; Visit Provider Family Medicine | DX: E11.9 Type 2 diabetes mellitus without complications (principal); Z79.4 Long term (current) use of insulin | CPT/HCPCS: 80053; 80061; 83036 ==

== ENCOUNTER → 2024-03-04 10:49 | Outpatient (BNVA) | payer MEDICARE, OTHER, SELFPAY | PROVIDERS: PCP Family Medicine; Visit Provider Nurse Practitioner Family | DX: I48.0 Paroxysmal atrial fibrillation (principal); R07.89 Other chest pain; I10 Essential (primary) hypertension; E78.2 Mixed hyperlipidemia; Z86.718 Personal history of other venous thrombosis and embolism; Z79.01 Long term (current) use of anticoagulants | CPT/HCPCS: 99213 ==

== ENCOUNTER → 2024-04-15 15:59 | Outpatient (BNVA) | payer MEDICARE, OTHER, SELFPAY | PROVIDERS: PCP Family Medicine; Visit Provider Family Medicine | DX: I10 Essential (primary) hypertension (principal); E78.2 Mixed hyperlipidemia; E11.9 Type 2 diabetes mellitus without complications; Z79.4 Long term (current) use of insulin; E03.9 Hypothyroidism, unspecified; M25.50 Pain in unspecified joint; E78.5 Hyperlipidemia, unspecified | CPT/HCPCS: 80053; 80061; 83036; 84443; 84550; 85025 ==

== ENCOUNTER → 2024-08-12 11:04 | Outpatient (BNVA) | payer MEDICARE, OTHER, SELFPAY | PROVIDERS: PCP Family Medicine; Visit Provider Family Medicine | DX: E03.9 Hypothyroidism, unspecified (principal) | CPT/HCPCS: 84443 ==

== ENCOUNTER → 2024-11-25 14:37 | Outpatient (BNVA) | payer MEDICARE, OTHER, SELFPAY | PROVIDERS: PCP Family Medicine; Visit Provider Family Medicine | DX: E03.9 Hypothyroidism, unspecified (principal); E78.2 Mixed hyperlipidemia; E11.9 Type 2 diabetes mellitus without complications; Z79.4 Long term (current) use of insulin | CPT/HCPCS: 80053; 80061; 83036; 84443 ==